=== PATIENT | male | born 1980 | race Caucasian/White ===

== ENCOUNTER 2020-09-06 12:10 | Outpatient (REF) | payer OTHER, SELFPAY | END 2020-09-06 12:11 | disposition home or self-care (01) | LOC: HO.MDS 12:10 | PROVIDERS: PCP Physician Assistant; Visit Provider Internal Medicine Gastroenterology | DX: K50.819 Crohn's disease of both small and large intestine with unspecified complications (principal) | CPT/HCPCS: 96413; 96415 ==

== ENCOUNTER 2020-09-13 12:38 | Day surgery (SDC) | payer OTHER, SELFPAY ==
--- NOTE | 2020-09-12 11:19 | HO.ANESPROP2 ---
Documented by User: Natalie Ballesteros 09/12/20 11:24 HPI - Anesthesia Eval Consult details Narrative: 39yo M for Colonoscopy: Crohn's [facility] Past Medical History Medical History Anemia Anxiety Asthma Crohn disease Depression Surgical History Surgical History H/O colonoscopy H/O esophagogastroduodenoscopy Social History Social History (Updated 09/12/20 @ 11:23 by Natalie Ballesteros) Smoking Status: Never smoker Second Hand Smoke Exposure: Yes Use of substances other than those prescribed or required for medical reasons: No Advance Directives: No Meds Allergies Allergy/AdvReac Type Severity Reaction Status Date / Time prednisone [PREDNISONE] Allergy Intermediate RASH Verified 09/13/20 13:21 lactose AdvReac Intermediate abdominal Uncoded 09/13/20 13:21 pain, diarrhea Exam Exam Date and Time: September 12, 2020 1119 Pertinent Lab Results Pertinent Lab Results: Laboratory Tests 07/16/20 07/16/20 07:18 07:18 WBC 10.9 H Hgb 15.0 Hct 47.9 Plt Count 319 D Sodium 137 Potassium 4.3 Chloride 100 BUN 14 Creatinine 1.02 Assessment and Plan Assessment Anesthesia Assessment: Chart Reviewed Documented by User: Donita Allison 09/13/20 13:28 [facility] Past Medical History Medical History Anemia Anxiety Asthma Crohn disease Depression Family History Family history of problems with anesthesia: No Surgical History Surgical History H/O colonoscopy H/O esophagogastroduodenoscopy History of Problems with Anesthesia: No Social History Social History (Updated 09/12/20 @ 11:23 by Natalie Ballesteros) Smoking Status: Never smoker Second Hand Smoke Exposure: Yes Use of substances other than those prescribed or required for medical reasons: No Advance Directives: No Meds Allergies Allergy/AdvReac Type Severity Reaction Status Date / Time prednisone [PREDNISONE] Allergy Intermediate RASH Verified 09/13/20 13:21 lactose AdvReac Intermediate abdominal Uncoded 09/13/20 13:21 pain, diarrhea Exam Height,Weight and Vital Signs: Height 5 ft 7 in Weight 79.379 kg Vital Signs Temp Pulse Resp BP Pulse Ox 09/13/20 13:23 97.3 F 74 16 111/63 97 Airway Mallampati Class: II TM Dist: >3cm Neck ROM: Full Loose/Missing/Broken Teeth: Yes (Missing) Heart: RRR Lungs: CTAB Assessment and Plan Assessment Anesthesia Assessment: Anesthesia Plan Discussed and Chart Reviewed Final Anesthetic Review NPO: Yes ASA Class: II Final Preanesthetic Review: No Changes in Pt Med Stat, Meds/Allgs Chart Reviewed, Consent Obtained/Reviewed and Anes Risks/Benef Reviewed Patient Risk: Low Procedure Risk: Low Anesthetic Plan Anesthetic Plan: MAC: Disposition: Standard PACU
[2020-09-13 13:23] VITALS: BP 111/63; PULSE 74; RESP 16; TEMP 36.3; O2SAT 97
[2020-09-13] MEDS: Lactated Ringers 1,000 ML 100 ML IVCONT (13:24)
[2020-09-13 13:25] VITALS: BMI 27.3
--- NOTE | 2020-09-13 13:37 | P.HPSUR_ITS ---
Pre-Procedural Eval Section A The patient is an INPATIENT: No The History & Physical has been completed within 30 days and I have reviewed it.: No Section B Chief Complaint: crohns disease Details of Present Illness: Abdominal pain, bloating some bleeding--On Remicade infusions evaluate for level of mucosal activity Relevant Family History (Specify if Yes): No Relevant Social History: None Present Medications: see Short Stay Collaborative assessment Medical History: Significant History (IBD-Crohn's, Low Vitamin D; asthma) History of Previous Operations: Relevant previous surgery/procedure and date(s) (2106--L colo--stopped secondary to vomiting) Allergies: Allergies Allergy/AdvReac Type Severity Reaction Status Date / Time prednisone [PREDNISONE] Allergy Intermediate RASH Verified 09/13/20 13:21 lactose AdvReac Intermediate abdominal Uncoded 09/13/20 13:21 pain, diarrhea Review of Systems Sugical H&P ROS: Negative: Constitution and Cardiovascular and Yes, Specify: Respiratory (Asthma), Psychiatric (anxiety) and Gastrointestinal (IBD) Exam Surgical H&P Exam: Normal: HEENT, Normal: Heart, Normal: Lungs, Normal: Extremities and Normal: Abdomen Plan Diagnosis/Plan: Unchanged Patient has been examined and remains a candidate for the planned procedure YES
--- NOTE | 2020-09-13 14:27 | PM.PROC ---
Brief Operative Note Date of procedure: 09/13/20 Pre-op diagnosis: CROHN'S DISEASE EVALUATE MUCOSAL HEALING ON REMICADE. Post-op diagnosis: same (sUGGESTS IMPROVEMENT. ??PERIANAL INFLAMATION) Procedure: COLONOSCOPY WITH MULTIPLE BX--EPI INJECTION 1.5 CC Anesthesia: MAC (MIGUE HWANG) Surgeon: Kerline Preston Estimated blood loss (mL): 10 Pathology: other (RIGHT COLON, LEFT COLON RECTAL) Condition: stable Disposition: PACU
[2020-09-13 14:33] VITALS: BP 105/59; PULSE 89; RESP 16; TEMP 36.1; O2SAT 96
[2020-09-13] MEDS: Acetaminophen 325 MG TABLET 650 MG PO (14:46)
[2020-09-13 14:48] VITALS: BP 111/73; PULSE 86; RESP 16; TEMP 36.1; O2SAT 97
--- NOTE | 2020-09-14 08:38 | OP_ITS ---
SURGEON: Kerline Preston MD POSTOPERATIVE DIAGNOSIS: Crohn disease appears improved, raise a question of possibility of perianal disease activity. PROCEDURE PERFORMED: Colonoscopy with biopsy, right and left colon; some degree of general friability of mucosa. (oozing @ site was treated with epinephrine submucosal injection 1.5 mL). ESTIMATED BLOOD LOSS: Minimal. COMPLICATIONS: No complications. ANESTHESIA: Monitored. ANESTHESIOLOGIST: Paul Kemp CRNA. ASSISTANTS: No outreach assistant. SPECIMENS: Specimen removed; right colon biopsy, left colon biopsy, rectal biopsy and anorectal verge. PREOPERATIVE DIAGNOSES: Crohn disease, colonoscopy for evaluation mucosal healing on Current therapy.. The patient has a variety of intermittently active symptoms. (He also has an IBS tendency.) WATER FILTRATION TECHNICIAN: Dr. Preston. FINDINGS: Digital rectal exam revealed prostate to be unremarkable. Video colonoscope was introduced without difficulty. It was navigated into the rectosigmoid and sigmoid. Mucosa had slightly edematous and friable appearance. No ulcerations were seen. We passed the descending, transverse, ascending colon into the cecum. A couple of times I could see the area of the TI, which did not appear inflamed, but was eccentrically positioned, so that I could not effectively intubate that area. Biopsies could not be of the terminal ileum could not be done.. Scope was withdrawn. Biopsies were obtained as noted. Retroflexed view showed some exudative change in the perianal region, mostly on the hemorrhoidal surface and the 1 cm that included ARV.. Biopsy was taken just above the area of the anorectal verge. This is the region that had the submucosal injection of epinephrine. PLAN: We will review histological findings, laboratory testing again. At patient's presentation today, he said he was feeling well. We will likely continue with his Remicade infusions as they are. He will be closely followed clinically over the next several months. (He is about to be a father again.) GRAFT OR IMPLANTS: No grafts or implants. CONDITION: Postprocedure, stable. Kerline Preston MD MEN/MODL / [id number] AMBER
== END 2020-09-13 15:37 | disposition home or self-care (01) ==
PROVIDERS: PCP Physician Assistant; Visit Provider Internal Medicine Gastroenterology
PROC: 0DJD8ZZ Inspection of Lower Intestinal Tract, Via Natural or Artificial Opening Endoscopic (ICD-10-PCS; CPT 45378; principal; 2020-09-13 13:10)
DX: K50.90 Crohn's disease, unspecified, without complications (principal); D64.9 Anemia, unspecified; J45.909 Unspecified asthma, uncomplicated; Z79.899 Other long term (current) drug therapy
CPT/HCPCS: 45380; 88305; J0171

== ENCOUNTER → 2020-10-10 09:55 | Outpatient (BNVA) | payer OTHER, SELFPAY | PROVIDERS: PCP Physician Assistant; Referring Provider Physician Assistant; Visit Provider Internal Medicine Gastroenterology | DX: Z76.89 Persons encountering health services in other specified circumstances (principal) ==

== ENCOUNTER 2020-10-17 07:57 | Outpatient (REF) | payer OTHER, SELFPAY | END 2020-10-17 07:58 | disposition home or self-care (01) | LOC: HO.MDS 07:57 | PROVIDERS: PCP Physician Assistant; Visit Provider Internal Medicine Gastroenterology | DX: K50.90 Crohn's disease, unspecified, without complications (principal) | CPT/HCPCS: 96413; 96415; J1745 ==

== ENCOUNTER 2020-11-28 09:42 | Outpatient (REF) | payer OTHER, SELFPAY | END 2020-11-28 09:43 | disposition home or self-care (01) | LOC: HO.MDS 09:42 | PROVIDERS: PCP Physician Assistant; Visit Provider Internal Medicine Gastroenterology | DX: K50.819 Crohn's disease of both small and large intestine with unspecified complications (principal) | CPT/HCPCS: 96413; 96415; J1745 ==

== ENCOUNTER → 2021-01-03 11:43 | Outpatient (BNVA) | payer OTHER, SELFPAY | PROVIDERS: PCP Physician Assistant; Visit Provider Urology ==

== ENCOUNTER 2021-01-08 09:15 | Outpatient (REF) | payer OTHER, SELFPAY | END 2021-01-08 09:16 | disposition home or self-care (01) | LOC: HO.MDS 09:15 | PROVIDERS: PCP Physician Assistant; Visit Provider Internal Medicine Gastroenterology | DX: K50.819 Crohn's disease of both small and large intestine with unspecified complications (principal) | CPT/HCPCS: 96413; 96415; J1745 ==

== ENCOUNTER 2021-01-12 09:34 | Outpatient (REF) | payer OTHER, SELFPAY ==
[2021-01-12 10:10] LABS: MANUAL DIFF FLAG NO
[2021-01-12 10:14] LABS: Basophils Absolute Auto 0.1 X10*3/uL (0.0-0.2); Basophils Percent Auto 0.9 % (0-2); Eosinophils Absolute Auto 0.4 X10*3/uL (0.0-0.4); Eosinophils Percent Auto 4.9 % (0-4); Hematocrit 45.2 % (42-52); Hemoglobin 14.5 g/dl (14.0-18.0); Imm Gran Abs Auto 0.02 X10*3/uL (0.00-0.03); Imm Gran Pct Auto 0.3 % (0.0-0.4); Lymphocytes Percent Auto 26.5 % (20-40); Mean Corpuscular HGB Conc 32.1 g/dl (31.0-36.0); Mean Corpuscular Hemoglobin 27.1 pg (27.0-33.0); Mean Corpuscular Volume 84.5 fL (80-98); Mean Platelet Volume 9.7 fL (9.4-12.4); Monocytes Absolute Auto 0.5 X10*3/uL (0.1-1.2); Monocytes Percent Auto 6.3 % (2-11); Neutrophils Absolute Auto 4.6 X10*3/uL (2.0-8.3); Neutrophils Percent Auto 61.1 % (45-73); Platelet Count 366 X10*3/uL (160-400); Red Blood Count 5.35 X10*6/uL (4.60-5.80); Red Cell Distribution Width 13.6 % (11.0-16.0); White Blood Count 7.5 X10*3/uL (4.8-10.8)
[2021-01-12 10:40] LABS: Alanine Aminotransferase 20 U/L (0-40); Albumin Level 3.4 g/dL (3.5-5.0); Alkaline Phosphatase 47 U/L (39-117); Anion Gap 12 (12-20); Aspartate Amino Transferase 20 U/L (5-37); Bilirubin Total 0.4 mg/dL (0.0-1.0); Blood Urea Nitrogen 17 mg/dL (9-16); C Reactive Protein 0.88 mg/dL (< or = 0.50); Calcium 8.6 mg/dL (8.4-10.2); Carbon Dioxide 30 mmol/L (22-29); Chloride 103 mmol/L (96-108); Estimated Glomerular Filt Rate > 60; Glucose Random 65 mg/dL (60-115); Potassium 4.5 mmol/L (3.3-5.1); Sodium 140 mmol/L (135-145)
[2021-01-12 11:02] LABS: Vitamin D 25-OH Total 23.6 ng/mL (>30)
== END 2021-01-12 09:35 | disposition home or self-care (01) ==
LOC: HO.LAB 09:34
PROVIDERS: PCP Physician Assistant; Visit Provider Internal Medicine Gastroenterology
DX: K50.90 Crohn's disease, unspecified, without complications (principal)
CPT/HCPCS: 36415; 80053; 82306; 85025; 86140

== ENCOUNTER → 2021-02-04 14:15 | Outpatient (BNVA) | payer OTHER, SELFPAY | PROVIDERS: Visit Provider Internal Medicine Gastroenterology ==

== ENCOUNTER 2021-03-19 08:10 | Outpatient (REF) | payer OTHER, SELFPAY | END 2021-03-19 08:11 | disposition home or self-care (01) | LOC: HO.MDS 08:10 | PROVIDERS: PCP Physician Assistant; Visit Provider Internal Medicine Gastroenterology | DX: K50.819 Crohn's disease of both small and large intestine with unspecified complications (principal) | CPT/HCPCS: 36415; 80230; 82397; 82542; 83520; 86141; 96413; 96415; J1745 ==

== ENCOUNTER 2021-04-16 12:21 | Emergency (ER) | payer OTHER, SELFPAY ==
--- NOTE | ~2021-04-16 | CT_ITS ---
EXAMINATION: CT ANGIOGRAM OF THE CHEST WITH AND WITHOUT CONTRAST (CT PULMONARY ANGIOGRAM FOR PE) CLINICAL INFORMATION: Reason for Exam Chest tightness, low O2 sats COMPARISON: Chest x-ray 04/16/2021 TECHNIQUE: Prior to contrast administration, noncontrast localization images were obtained. Subsequently, multidetector volumetric imaging was performed from the thoracic inlet to below the diaphragms following the administration of 65 mL Omnipaque 350 intravenous contrast. No contrast reaction reported Sagittal, coronal, and MIP oblique sagittal reformatted images were obtained on the CT workstation, uploaded to PACS, and reviewed. This CT examination was performed using dose optimization techniques as appropriate, variously including the following: *Automated exposure control *Adjustment of mA and/or kV according to patient size (this includes techniques or standardized protocols for targeted exams where dose is matched to indication/reason for exam; i.e. extremities or head) *Use of iterative reconstruction technique Total exam dose-length product 300 mGy-cm FINDINGS: QUALITY OF STUDY/CONTRAST BOLUS: Satisfactory. PULMONARY ARTERIES: No central or segmental pulmonary emboli. THORACIC AORTA: No aneurysm or dissection. LUNG: No focal consolidation, nodules or masses. PLEURA: No pleural effusion or pneumothorax. MEDIASTINUM: Normal heart size. No pericardial effusion. No hilar or mediastinal lymphadenopathy. No evidence of septal bowing or right heart strain. CHEST WALL/AXILLA: No axillary or internal mammary lymphadenopathy. OSSEOUS STRUCTURES: No acute or suspicious osseous abnormality. UPPER ABDOMEN: Unremarkable. No reflux of contrast into the hepatic veins to suggest elevated right heart pressures. CT/CT angio chest PE protocol IMPRESSION: Normal CT chest. No evidence of pulmonary embolism. VTE: negative
--- NOTE | ~2021-04-16 | XR_ITS ---
EXAMINATION: XR CHEST CLINICAL INFORMATION: Dyspnea. COMPARISON: None TECHNIQUE: 2 views of the chest were obtained. FINDINGS: No significant abnormality is noted involving the heart, lungs, mediastinum, bony thorax or soft tissues. XR/XR chest 2V IMPRESSION: Unremarkable chest exam.
[2021-04-16 12:41] VITALS: BP 136/107; PULSE 75; RESP 18; TEMP 37; O2SAT 93; BMI 27.3
--- NOTE | 2021-04-16 12:58 | ECG_ITS ---
Test Reason : SOB Blood Pressure : / mmHG Vent. Rate : 071 BPM Atrial Rate : 071 BPM P-R Int : 132 ms QRS Dur : 100 ms QT Int : 386 ms P-R-T Axes : 063 065 051 degrees QTc Int : 419 ms Normal sinus rhythm with sinus arrhythmia Normal ECG No significant changes when compared with the previous EKG of april 16, 2021 Referred By: Deedee Carrillo Electronically Signed By:KRUNAL ORTEGA
--- NOTE | 2021-04-16 13:00 | ED.SOB ---
HPI - SOB/Dyspnea General Chief Complaint: Dyspnea Stated Complaint: asthma Time Seen by Provider: 04/16/21 12:51 Source: patient, RN notes reviewed and old records reviewed Mode of arrival: ambulatory Limitations: no limitations History of Present Illness HPI Narrative: 40-year-old male with past medical history of Crohn's, asthma and seasonal allergies is here today for complaining of shortness of breath. Reports that he has been feeling like this for last 3 weeks. Increased cough, and shortness of breath, denies fever or chills. Denies CP, PND or any other symptoms. Denies any exposure to COVID. Related Data Home Medications Medication Instructions Recorded Confirmed infliximab 100 mg intravenous IV 10/10/20 02/04/21 solution albuterol sulfate 90 mcg/actuation INHALATION 10/24/20 02/04/21 aerosol inhaler meclizine 25 mg tablet 25 mg PO DAILY PRN 01/03/21 02/04/21 sodium chloride 0.9 % (flush) ml IV DIRECTED 01/03/21 Previous Rx's Medication Instructions Recorded loratadine 10 mg tablet 10 mg PO DAILY #30 tab 11/13/20 mesalamine 1,000 mg rectal 1,000 mg [place] BEDTIME #30 supp 12/09/20 suppository acetaminophen 300 mg-codeine 30 mg 1 tab PO Q8H #7 tab 01/03/21 tablet cholecalciferol (vitamin D3) 50 2,000 unit PO DAILY 30 Days #30 cap 02/05/21 mcg (2,000 unit) capsule hydrocortisone 1 % topical cream 1 appl TOPICAL BEDTIME 30 Days #28 02/07/21 g albuterol sulfate 2.5 mg INHALATION TID PRN 30 Days 04/10/21 #270 ml albuterol sulfate 2.5 mg INHALATION Q6H PRN #90 ml 04/16/21 albuterol sulfate [ProAir HFA] 2 puff INHALATION Q6H PRN #8.5 g 04/16/21 fluticasone propionate [Aller-Ancelmo] 1 spray INTRANASAL BID #16 g 04/16/21 Allergies Allergy/AdvReac Type Severity Reaction Status Date / Time prednisone [PREDNISONE] Allergy Intermediate RASH Verified 02/04/21 14:16 lactose AdvReac Intermediate abdominal Uncoded 01/03/21 11:45 pain, diarrhea Review of Systems Review of Systems: Constitutional : No Weight loss, No Fever, No Chills, No Night Sweats, No Fatigue, No Malaise ENT/Mouth : No Hearing loss, No Ear Pain, No Nasal Congestion, No Sinus Pain, No Hoarseness, No sore throat, No Rhinorrhea, No Swallowing Difficulty Eyes: No Eye Pain, No Swelling, No Redness, No Foreign Body, No Discharge, No Vision Changes Cardiovascular : No Chest Pain, No SOB, No Dyspnea on Exertion, No Orthopnea, No Edema, No Palpitations Respiratory : No Cough, No Sputum, No Wheezing, No Smoke Exposure, Dyspnea Gastrointestinal : No Nausea, No Vomiting, No Diarrhea, No Constipation, No abdominal Pain, No Hematochezia, No Melena Genitourinary : no irregular bleeding, No Dysuria, No Urinary Frequency, No Hematuria, No Urinary Incontinence, No Urgency, No Flank Pain, No Urinary Flow Changes, No Hesitancy Musculoskeletal : No joint pain, No Myalgias, No Joint Swelling Skin : No Skin Lesions, No rash Neuro : No Weakness, No Numbness, No Paresthesias, No Loss of Consciousness, No Dizziness, No Headache Psych : No Anxiety/Panic, No Depression, No SI/HI/AH/VH, No Social Issues, Heme/Lymph: No Bruising, No Bleeding,No Lymphadenopathy Endocrine : No Polyuria, No Polydipsia, No Temperature Intolerance Yes all other systems are reviewed and are negative [facility] Past Medical History Medical History (Updated 04/16/21 @ 17:23 by JAOSN Gann) Anemia Anxiety Asthma Crohn disease Depression Surgical History H/O colonoscopy H/O esophagogastroduodenoscopy Family History Family History Father Medical history unknown Mother Medical history unknown Social History Social History Household Members: Spouse and Children Alcohol intake: never Smoking Status: Never smoker Second Hand Smoke Exposure: Yes Use of substances other than those prescribed or required for medical reasons: No Advance Directives: Yes Advance Directives Information Provided: Yes Advance Directives on File: No Current occupational status: unemployed Physical Exam Vital Signs: Vital Signs: Last Vital Signs Temp 98.6 F 04/16/21 12:41 Pulse 81 04/16/21 16:03 Resp 18 04/16/21 16:03 BP 115/74 04/16/21 16:03 Pulse Ox 97 04/16/21 16:03 Body Mass Index 27.3 Const: General: cooperative, healthy appearing and comfortable Nutritional Appearance: average body habitus Orientation/consciousness: patient oriented x3 Limitations: no limitations HENMT: Head: Yes normal to inspection Ears: hearing grossly normal bilaterally General nose exam: Normal external nose present Face and sinus: Yes normal facial exam Mouth: Normal oral and palatal mucosa present Throat: Yes posterior oropharynx normal Eyes: General: appearance normal, both eyes and all related structures Eyelids: Yes eyelids normal Conjunctivae: conjunctivae normal Sclerae: sclerae normal Pupils: Equal, round and reactive pupils present Neck: Neck: Yes normal visual inspection, Yes full ROM, Yes no lymphadenopathy, Yes trachea midline and Yes supple Thyroid: Thyroid normal Lymphatic: no lymphadenopathy noted Chest: Chest palpation & inspection: normal inspection of the chest Resp: Effort & Inspection: normal respiratory effort, able to speak in complete sentences and Actively coughing Auscultation: rales Cardio: Jugular venous distension: no JVD Rate: regular rate Rhythm: regular rhythm Heart sounds: S1 normal heart sound present, S2 normal heart sound present, no gallops, no murmurs and no rubs Peripheral pulses: Peripheral pulses 2+ throughout GI: Inspection: Yes normal to inspection and No distended Palpation (GI): No hepatosplenomegaly present and No Rebound tenderness present Percussion: Yes normal to percussion Auscultation: normal bowel sounds Back/Spine/Pelvis: Cervical Spine: cervical ROM normal and No cervical muscular tenderness Thoracic/Lumbar Spine: thoracic and lumbar spine normal to inspection Skin: General skin exam: no rashes or lesions noted, elasticity normal and turgor normal Neuro: General: patient oriented x3 Cranial nerves: Yes Equal, round and reactive pupils present Extrem: General: Yes normal to inspection, Yes full ROM and Yes capillary refill normal Psych: Appearance: grossly normal Mental Status: mental status grossly normal Speech and movement: Normal speech and movement present Affect: normal affect Attitude: cooperative Thought process: Normal thought process present Insight: Good insight present (Psych) Course Course Course Narrative: 40 years old male here today for complaining of shortness of breath and cough for last 3 weeks. Patient has history of asthma and has been using nebulizers as well as inhalers at home. He takes Claritin daily. He reports that the pollen is making his symptoms worse. He has not been taking Flonase or any other medications. Patient reports that the shortness of breath is worse at night. His O2 sat is 95 and his lung sounds with scattered rales. Negative for edema. Will order CBC, BMP, and chest x-ray. Will also order COVID test Reevaluation(s) Reevaluation #1: Chest x-ray negative. CBC negative for leukocytosis or anemia. Eosinophilic count high at 11.2. COVID test negative. Will order updraft. Patient reports now that his chest feels tight. I will order CT of the chest to rule out PE. Reevaluation #2: Patient reports that he is feeling much better after his upstroke treatment. Awaiting for CT of the chest to rule out PE. Patient is O2 saturation improved as well as his lung sounds. Reevaluation #3: CT of the chest negative for PE. Patient reports that he feels much better. I will send him home with script for albuterol updraft solution as well as for rescue inhaler. I will send him home with Flonase as well. Patient has a lot of postnasal drip in particularly during the night when he is laying flat MDM - SOB/Dyspnea Lab Data Attestation: I reviewed the patient's lab results. Result diagrams: 04/16/21 13:52 04/16/21 13:52 Labs: Lab Results 04/16/21 04/16/21 04/16/21 Range/Units 13:52 13:52 13:52 WBC 9.4 (4.8-10.8) X10*3/uL RBC 5.64 (4.60-5.80) X10*6/uL Hgb 15.2 (14.0-18.0) g/dl Hct 46.9 (42-52) % MCV 83.2 (80-98) fL MCH 27.0 (27.0-33.0) pg MCHC 32.4 (31.0-36.0) g/dl RDW 14.7 (11.0-16.0) % Plt Count 324 (160-400) X10*3/uL MPV 10.0 (9.4-12.4) fL Immature Gran % (Auto) 0.2 (0.0-0.4) % Neut % (Auto) 51.8 (45-73) % Lymph % (Auto) 27.9 (20-40) % Catron % (Auto) 7.8 (2-11) % Eos % (Auto) 11.2 H (0-4) % Baso % (Auto) 1.1 (0-2) % Lymph # (Auto) 2.6 (1.2-4.9) X10*3/uL Catron # (Auto) 0.7 (0.1-1.2) X10*3/uL Eos # (Auto) 1.1 H (0.0-0.4) X10*3/uL Baso # (Auto) 0.1 (0.0-0.2) X10*3/uL Abs Immat Gran (auto) 0.02 (0.00-0.03) X10*3/uL Absolute Neuts (auto) 4.9 (2.0-8.3) X10*3/uL Absolute Nucleated RBC 0.000 (0.0-0.012) X10*3/uL Nucleated RBC % (auto) 0.0 (0.0-0.2) /100WBC Hold Blue Top SEE NOTE Sodium 133 L (135-145) mmol/L Potassium 4.0 (3.3-5.1) mmol/L Chloride 101 (96-108) mmol/L Carbon Dioxide 25 (22-29) mmol/L Anion Gap 11 L (12-20) BUN 17 H (9-16) mg/dL Creatinine 0.97 (0.5-1.4) mg/dL Estim Creat Clear Calc 104.2 Estimated GFR > 60 Random Glucose 80 (60-115) mg/dL Calcium 9.0 (8.4-10.2) mg/dL Troponin I High Sens (<3.5-35.0) ng/L COVID-19 (COLIN) (Negative) COVID-19 Clin Com 04/16/21 04/16/21 Range/Units 13:59 15:14 WBC (4.8-10.8) X10*3/uL RBC (4.60-5.80) X10*6/uL Hgb (14.0-18.0) g/dl Hct (42-52) % MCV (80-98) fL MCH (27.0-33.0) pg MCHC (31.0-36.0) g/dl RDW (11.0-16.0) % Plt Count (160-400) X10*3/uL MPV (9.4-12.4) fL Immature Gran % (Auto) (0.0-0.4) % Neut % (Auto) (45-73) % Lymph % (Auto) (20-40) % Catron % (Auto) (2-11) % Eos % (Auto) (0-4) % Baso % (Auto) (0-2) % Lymph # (Auto) (1.2-4.9) X10*3/uL Catron # (Auto) (0.1-1.2) X10*3/uL Eos # (Auto) (0.0-0.4) X10*3/uL Baso # (Auto) (0.0-0.2) X10*3/uL Abs Immat Gran (auto) (0.00-0.03) X10*3/uL Absolute Neuts (auto) (2.0-8.3) X10*3/uL Absolute Nucleated RBC (0.0-0.012) X10*3/uL Nucleated RBC % (auto) (0.0-0.2) /100WBC Hold Blue Top Sodium (135-145) mmol/L Potassium (3.3-5.1) mmol/L Chloride (96-108) mmol/L Carbon Dioxide (22-29) mmol/L Anion Gap (12-20) BUN (9-16) mg/dL Creatinine (0.5-1.4) mg/dL Estim Creat Clear Calc Estimated GFR Random Glucose (60-115) mg/dL Calcium (8.4-10.2) mg/dL Troponin I High Sens < 3.5 (<3.5-35.0) ng/L COVID-19 (COLIN) Negative (Negative) COVID-19 Clin Com See Note Imaging Data Chest x-ray: Radiologist's impression: FINDINGS: No significant abnormality is noted involving the heart, lungs, mediastinum, bony thorax or soft tissues. XR/XR chest 2V IMPRESSION: Unremarkable chest exam. CT scan - chest: Radiologist's impression: FINDINGS: QUALITY OF STUDY/CONTRAST BOLUS: Satisfactory. PULMONARY ARTERIES: No central or segmental pulmonary emboli. THORACIC AORTA: No aneurysm or dissection. LUNG: No focal consolidation, nodules or masses. PLEURA: No pleural effusion or pneumothorax. MEDIASTINUM: Normal heart size. No pericardial effusion. No hilar or mediastinal lymphadenopathy. No evidence of septal bowing or right heart strain. CHEST WALL/AXILLA: No axillary or internal mammary lymphadenopathy. OSSEOUS STRUCTURES: No acute or suspicious osseous abnormality. UPPER ABDOMEN: Unremarkable. No reflux of contrast into the hepatic veins to suggest elevated right heart pressures. CT/CT angio chest PE protocol IMPRESSION: Normal CT chest. No evidence of pulmonary embolism. VTE: negative Discharge Plan Discharge Clinical Impression: Asthma with exacerbation Patient Disposition: Home, Self-Care Instructions: Asthma (ED), Allergies (ED) Additional Instructions: You were seen here today for shortness of breath. Your chest x-ray was normal as well as your CT scan of the chest. Your lab work was negative for any abnormal findings. Please follow-up with you PCP in 2-3 days. You may return to emergency department if your symptoms return or get worse or if you will experience any additional concerning symptoms. Prescriptions: New albuterol sulfate 2.5 mg /3 mL (0.083 %) solution for nebulization 2.5 mg inhalation Q6H PRN (Reason: shortness of breath or wheezing) Qty: 90 RF: 0 albuterol sulfate [ProAir HFA] 90 mcg/actuation HFA aerosol inhaler 2 puff inhalation Q6H PRN (Reason: shortness of breath or wheezing) Qty: 8.5 RF: 0 fluticasone propionate [Aller-Ancelmo] 50 mcg/actuation spray,suspension 1 spray intranasal BID Qty: 16 RF: 0 No Action loratadine 10 mg tablet 10 mg PO DAILY Qty: 30 RF: 4 mesalamine 1,000 mg suppository 1,000 mg [place] BEDTIME Qty: 30 RF: 2 cholecalciferol (vitamin D3) 50 mcg (2,000 unit) capsule 2,000 unit PO DAILY 30 Days Qty: 30 RF: 3 hydrocortisone 1 % cream 1 appl topical BEDTIME 30 Days Qty: 28 RF: 1 albuterol sulfate 2.5 mg /3 mL (0.083 %) solution for nebulization 2.5 mg inhalation TID PRN (Reason: dyspnea) 30 Days Qty: 270 RF: 1 albuterol sulfate 90 mcg/actuation HFA aerosol inhaler inhalation RF: 0 Remicade 100 mg recon soln IV RF: 0 meclizine 25 mg tablet 25 mg PO DAILY PRNRF: 0 sodium chloride 0.9 % (flush) Syringe IV DIRECTED RF: 0 acetaminophen-codeine 300-30 mg tablet 1 tab PO Q8H Qty: 7 RF: 0 Stand Alone Forms: Work/School Release Interventions: ED Discharge Assessment Last Done: 04/16/21 17:33 Discharge Date/Time: 04/16/21 17:33
[2021-04-16 13:56] LABS: MANUAL DIFF FLAG NO
[2021-04-16 14:03] LABS: Basophils Absolute Auto 0.1 X10*3/uL (0.0-0.2); Basophils Percent Auto 1.1 % (0-2); Eosinophils Absolute Auto 1.1 X10*3/uL (0.0-0.4); Eosinophils Percent Auto 11.2 % (0-4); Hematocrit 46.9 % (42-52); Hemoglobin 15.2 g/dl (14.0-18.0); Imm Gran Abs Auto 0.02 X10*3/uL (0.00-0.03); Imm Gran Pct Auto 0.2 % (0.0-0.4); Lymphocytes Absolute Auto 2.6 X10*3/uL (1.2-4.9); Lymphocytes Percent Auto 27.9 % (20-40); Mean Corpuscular HGB Conc 32.4 g/dl (31.0-36.0); Mean Corpuscular Volume 83.2 fL (80-98); Monocytes Absolute Auto 0.7 X10*3/uL (0.1-1.2); Monocytes Percent Auto 7.8 % (2-11); Neutrophils Absolute Auto 4.9 X10*3/uL (2.0-8.3); Neutrophils Percent Auto 51.8 % (45-73); Platelet Count 324 X10*3/uL (160-400); Red Blood Count 5.64 X10*6/uL (4.60-5.80); Red Cell Distribution Width 14.7 % (11.0-16.0); White Blood Count 9.4 X10*3/uL (4.8-10.8)
[2021-04-16 14:22] LABS: COVID-19 Test Negative (Negative)
[2021-04-16 14:32] LABS: Anion Gap 11 (12-20); Blood Urea Nitrogen 17 mg/dL (9-16); Carbon Dioxide 25 mmol/L (22-29); Chloride 101 mmol/L (96-108); Creatinine Clr Calc Pharmacy 104.2; Estimated Glomerular Filt Rate > 60; Glucose Random 80 mg/dL (60-115); Sodium 133 mmol/L (135-145)
--- NOTE | 2021-04-16 14:54 | PC.NURSE ---
pt reports feeling sob. 92% on room air. placed on 2l nc for comfort and pt sat increased to 94-95%
[2021-04-16] MEDS: Albuterol Sulfate (0.083%) 2.5 MG/3 ML VIAL.NEB 5 MG INHALE (15:22)
[2021-04-16 15:23] VITALS: PULSE 74; O2SAT 96
[2021-04-16 15:50] LABS: Troponin-I High Sensitivity < 3.5 ng/L (<3.5-35.0)
[2021-04-16 16:03] VITALS: BP 115/74; PULSE 81; RESP 18; O2SAT 97
[2021-04-16] MEDS: iohexoL 350 MG/ML 100 ML INFUS..BTL IV (16:47)
== END 2021-04-16 17:33 | disposition home or self-care (01) ==
PROVIDERS: Nurse Practitioner Family; Emergency Provider Emergency Medicine; PCP Physician Assistant
DX: J45.901 Unspecified asthma with (acute) exacerbation (principal); Z20.822 Contact with and (suspected) exposure to COVID-19; K50.90 Crohn's disease, unspecified, without complications
CPT/HCPCS: 36415; 71046; 71275; 80048; 84484; 85025; 87635; 93005; 94640; 99285; Q9967

== ENCOUNTER 2021-04-23 02:59 | Emergency (ER) | payer OTHER, SELFPAY ==
--- NOTE | ~2021-04-23 | XR_ITS ---
EXAMINATION: XR CHEST CLINICAL INFORMATION: Cough COMPARISON: 04/16/2021 TECHNIQUE: Frontal view of the chest was obtained. FINDINGS: The lungs are clear with no focal consolidation. No evidence of pneumothorax, pulmonary edema, or pleural effusions. The cardiomediastinal silhouette is unremarkable. No acute osseous findings. XR/XR chest 1V IMPRESSION: No acute cardiopulmonary findings.
[2021-04-23 03:11] VITALS: BP 121/82; PULSE 75; RESP 16; TEMP 36.9; O2SAT 99; BMI 20.7
[2021-04-23 03:43] VITALS: PULSE 85; RESP 18; O2SAT 97
--- NOTE | 2021-04-23 04:34 | PC.NURSE ---
MD IN ROOM FOR EVAL. PT AWAITING FOR CXR.
--- NOTE | 2021-04-23 04:42 | ED_ITS ---
HPI - URI/Sore Throat General Chief Complaint: Upper Respiratory Symptoms Stated Complaint: Asthma Time Seen by Provider: 04/23/21 04:11 Source: patient and american sign language interpreter Mode of arrival: ambulatory Limitations: no limitations History of Present Illness HPI Narrative: 40-year-old male history of asthma came in complaining of asthma exacerbation during the nighttime for the past 4 weeks, patient was seen 6 days ago in the ED for similar presentation, patient complaining of cough with phlegm. Patient stated that more at nighttime he wake up with difficulty breathing and he has to use his asthma medication. Patient used his asthma albuterol inhaler before coming here and now he feels better, declined any flu-like symptoms. No fever, no chills. Related Data Home Medications Medication Instructions Recorded Confirmed infliximab 100 mg intravenous IV 10/10/20 04/17/21 solution meclizine 25 mg tablet 25 mg PO DAILY PRN 01/03/21 04/17/21 Previous Rx's Medication Instructions Recorded loratadine 10 mg tablet 10 mg PO DAILY #30 tab 11/13/20 mesalamine 1,000 mg rectal 1,000 mg [place] BEDTIME #30 supp 12/09/20 suppository acetaminophen 300 mg-codeine 30 mg 1 tab PO Q8H #7 tab 01/03/21 tablet cholecalciferol (vitamin D3) 50 2,000 unit PO DAILY 30 Days #30 cap 02/05/21 mcg (2,000 unit) capsule hydrocortisone 1 % topical cream 1 appl TOPICAL BEDTIME 30 Days #28 02/07/21 g albuterol sulfate 2.5 mg INHALATION Q6H PRN #90 ml 04/16/21 albuterol sulfate [ProAir HFA] 2 puff INHALATION Q6H PRN #8.5 g 04/16/21 fluticasone propionate [Aller-Ancelmo] 1 spray INTRANASAL BID #16 g 04/16/21 Allergies Allergy/AdvReac Type Severity Reaction Status Date / Time prednisone [PREDNISONE] Allergy Intermediate RASH Verified 04/17/21 08:57 lactose AdvReac Intermediate abdominal Uncoded 04/17/21 08:57 pain, diarrhea Review of Systems Review of Systems: All other systems are reviewed and are negative Constitutional: Reports as per HPI and Reports no additional constitutional complaints Eyes: Reports as per HPI and Reports no additional eye complaints Reports system reviewed and no additional complaints, except as documented Cardiovascular: Reports as per HPI and Reports no additional cardiovascular complaints Respiratory: Reports as per HPI and Reports no additional respiratory complaints Gastrointestinal: Reports as per HPI and Reports no additional gastrointestinal complaints Genitourinary: Reports no additional female genitourinary complaints Musculoskeletal: Reports no additional musculoskeletal complaints Skin/Breast: Reports system reviewed and no additional complaints, except as docu Psychiatric: Reports no additional psychiatric complaints Endocrine: Reports no additional endocrine complaints Hematologic/Lymphatic: Reports no additional hematologic/lymphatic complaints Allergic/Immunologic: Reports no additional allergic/immunologic complaints Reports system reviewed and no additional complaints, except as documented and Reports Abnormal speech present [facility] Past Medical History Medical History Anemia Anxiety Asthma Crohn disease Depression Surgical History H/O colonoscopy H/O esophagogastroduodenoscopy Family History Family History Father Medical history unknown Mother Medical history unknown Social History Social History Household Members: Spouse and Children Alcohol intake: never Patient Tobacco Use Status: Never used Tobacco Second Hand Smoke Exposure: Yes Advance Directives: No Advance Directives Information Provided: No Current occupational status: unemployed Physical Exam Vital Signs: Vital Signs: Last Vital Signs Temp 98.4 F 04/23/21 03:11 Pulse 85 04/23/21 03:43 Resp 18 04/23/21 03:43 BP 121/82 04/23/21 03:11 Pulse Ox 97 04/23/21 03:43 Body Mass Index 20.7 Vital signs have been reviewed as appeared to be correct. Blood pressure normal. Heart rate normal. Respiration rate normal. Temperature normal. Oxygen saturation normal. Appearance: Alert. Oriented X3. No acute distress. Head: Normal external exam. Normocephalic. Atraumatic. No Santana signs noted. No raccoon eyes noted Eyes: PERRLA. EOMI. Conjunctiva and sclera normal. Eyelids normal. ENT: TM's Normal. Pharynx normal. Uvula midline. Moist mucous membranes. No trismus noted. No drooling noted. No muffled voice noted. Neck: Normal inspection. Neck supple. FROM. No adenopathy. Thyroid Normal. No meningeal signs. No neck mass noted. CVS: Normal heart rate and rhythm. Heart sound normal. No murmurs noted. Pulses normal throughout. Respiratory: No respiratory distress. Painless inspiration. Breath sounds normal. No wheezes/rales noted. Chest nontender. No accessory muscle usage noted or decreased air movement noted. Abdomen: Soft and nontender. Bowel sounds normal in all 4 quadrants. No distention noted. No organomegaly noted. No visible injury noted. Back: No CVA tenderness. Full range of motion noted. Skin: Skin warm and dry. Normal skin color. Normal skin turgor. No kendal hes/lesions/lacerations noted. Extremities: No lower extremity edema. Extremities exhibit normal range of motion. Extremities nontender. Neuro: Oriented X 3. No motor deficit. No sensory deficit. Reflexes normal. Course Course Course Narrative: 40 years old male with history of asthma came in with worsening of asthma exacerbation mostly at nighttime that wake him up from sleep to use his asthma medicine, patient uses asthma medication before coming to the hospital now he feels better, patient also is complaining of productive cough with clear sputum chest x-ray is unremarkable, chest exam is unremarkable. As I discussed with the patient patient will need to follow up with esol teacher as an outpatient will provide Dr. Scott information. MDM - URI/Sore Throat Imaging Data Chest x-ray: Radiologist's impression: No acute pathology. Discharge Plan Discharge Clinical Impression: Asthma, Bronchitis Patient Disposition: Home, Self-Care Instructions: Bronchospasm (ED) Prescriptions: No Action loratadine 10 mg tablet 10 mg PO DAILY Qty: 30 RF: 4 mesalamine 1,000 mg suppository 1,000 mg [place] BEDTIME Qty: 30 RF: 2 cholecalciferol (vitamin D3) 50 mcg (2,000 unit) capsule 2,000 unit PO DAILY 30 Days Qty: 30 RF: 3 hydrocortisone 1 % cream 1 appl topical BEDTIME 30 Days Qty: 28 RF: 1 albuterol sulfate 2.5 mg /3 mL (0.083 %) solution for nebulization 2.5 mg inhalation Q6H PRN (Reason: shortness of breath or wheezing) Qty: 90 RF: 0 albuterol sulfate [ProAir HFA] 90 mcg/actuation HFA aerosol inhaler 2 puff inhalation Q6H PRN (Reason: shortness of breath or wheezing) Qty: 8.5 RF: 0 fluticasone propionate [Aller-Ancelmo] 50 mcg/actuation spray,suspension 1 spray intranasal BID Qty: 16 RF: 0 Remicade 100 mg recon soln IV RF: 0 meclizine 25 mg tablet 25 mg PO DAILY PRNRF: 0 acetaminophen-codeine 300-30 mg tablet 1 tab PO Q8H Qty: 7 RF: 0 Referrals: Bravo Scott MD [Physician] - 2 days
== END 2021-04-23 04:58 | disposition home or self-care (01) ==
PROVIDERS: Emergency Provider Emergency Medicine; PCP Physician Assistant
DX: J40 Bronchitis, not specified as acute or chronic (principal); R05 Cough
CPT/HCPCS: 71045; 99283

== ENCOUNTER 2021-04-24 08:58 | Outpatient (REF) | payer OTHER, SELFPAY ==
--- NOTE | ~2021-04-24 | MR_ITS ---
EXAMINATION: MR ABDOMEN AND PELVIS WITHOUT AND WITH CONTRAST CLINICAL INFORMATION: Crohn's disease, follow-up. COMPARISON: MRI of the abdomen and pelvis dated 01/04/2020. TECHNIQUE: MRI of the abdomen and pelvis before and after the IV administration of 8 mL of Gadavist was obtained using routine sequences. FINDINGS: Inferior chest: Unremarkable. Liver: Unremarkable. Biliary: Unremarkable. Pancreas: Unremarkable. Spleen: Unremarkable. Adrenal glands: Unremarkable. Kidneys/proximal ureters: Unremarkable. Urinary bladder: Bowel: There has been interval development of several dilated loops of proximal small bowel predominantly in the left mid to upper left abdomen. A sales training representative loop measures 4.3 cm in transverse dimension (image 34, series 10). Several short segments of mural thickening are seen with associated transition point. A sales training representative transition point in the left mid to lower abdomen measures approximately 1.6 cm in length (image 18, series 4; image 6, series 11). A second segment of the left of midline in the midabdomen measures 3.1 cm (image 25, series 4; image 25, series 10). An additional segment to the right of midline in the lower abdomen measures approximately 3.8 cm in length (image 4, series 11; image 25, series 4). Normal caliber small bowel is seen between the segments. The terminal ileum is unremarkable. The colon is unremarkable. Pelvic viscera: Unremarkable. Vascular: Unremarkable. Lymph Nodes: No lymphadenopathy. Musculoskeletal: L5-S1 severe degenerative disc disease and grade 1 anterolisthesis with mild interval worsening in disc space narrowing. No other significant abnormality. Soft tissues: Unremarkable. MR/MR pelvis wo/w con IMPRESSION: 1. Interval development of dilated loops of proximal small bowel predominantly in the left mid and upper abdomen with several short segment areas of mural thickening. A definitive transition point is seen in the left lower abdomen as detailed above. These findings appear partially obstructing, but given the long interval between studies, chronicity of the dilated small bowel loops cannot be determined. A CT scan of the abdomen and pelvis with oral contrast and/or a small bowel series may be of value to better assess for level of obstruction. 3. L5-S1 severe degenerative disc disease and grade 1 anterolisthesis with mild interval worsening.
--- NOTE | ~2021-04-24 | MR_ITS ---
EXAMINATION: MR ABDOMEN AND PELVIS WITHOUT AND WITH CONTRAST CLINICAL INFORMATION: Crohn's disease, follow-up. COMPARISON: MRI of the abdomen and pelvis dated 01/04/2020. TECHNIQUE: MRI of the abdomen and pelvis before and after the IV administration of 8 mL of Gadavist was obtained using routine sequences. FINDINGS: Inferior chest: Unremarkable. Liver: Unremarkable. Biliary: Unremarkable. Pancreas: Unremarkable. Spleen: Unremarkable. Adrenal glands: Unremarkable. Kidneys/proximal ureters: Unremarkable. Urinary bladder: Bowel: There has been interval development of several dilated loops of proximal small bowel predominantly in the left mid to upper left abdomen. A claims customer service representative loop measures 4.3 cm in transverse dimension (image 34, series 10). Several short segments of mural thickening are seen with associated transition point. A claims customer service representative transition point in the left mid to lower abdomen measures approximately 1.6 cm in length (image 18, series 4; image 6, series 11). A second segment of the left of midline in the midabdomen measures 3.1 cm (image 25, series 4; image 25, series 10). An additional segment to the right of midline in the lower abdomen measures approximately 3.8 cm in length (image 4, series 11; image 25, series 4). Normal caliber small bowel is seen between the segments. The terminal ileum is unremarkable. The colon is unremarkable. Pelvic viscera: Unremarkable. Vascular: Unremarkable. Lymph Nodes: No lymphadenopathy. Musculoskeletal: L5-S1 severe degenerative disc disease and grade 1 anterolisthesis with mild interval worsening in disc space narrowing. No other significant abnormality. Soft tissues: Unremarkable. MR/MR abdomen wo/w con IMPRESSION: 1. Interval development of dilated loops of proximal small bowel predominantly in the left mid and upper abdomen with several short segment areas of mural thickening. A definitive transition point is seen in the left lower abdomen as detailed above. These findings appear partially obstructing, but given the long interval between studies, chronicity of the dilated small bowel loops cannot be determined. A CT scan of the abdomen and pelvis with oral contrast and/or a small bowel series may be of value to better assess for level of obstruction. 3. L5-S1 severe degenerative disc disease and grade 1 anterolisthesis with mild interval worsening.
== END 2021-04-24 08:59 | disposition home or self-care (01) ==
LOC: HO.MRI 08:58
PROVIDERS: Visit Provider Internal Medicine Gastroenterology
DX: K50.90 Crohn's disease, unspecified, without complications (principal)
CPT/HCPCS: 72197; 74183; A9585

== ENCOUNTER 2021-04-30 08:20 | Outpatient (REF) | payer OTHER, SELFPAY ==
[2021-05-03 22:46] LABS: TS Negative Control Passed; TS Panel A 3; TS Panel B 0; TS Positive Control Passed; TSpotTB Negative (SeeBelow)
== END 2021-04-30 08:21 | disposition home or self-care (01) ==
LOC: HO.MDS 08:20
PROVIDERS: PCP Physician Assistant; Visit Provider Internal Medicine Gastroenterology
DX: K50.819 Crohn's disease of both small and large intestine with unspecified complications (principal)
CPT/HCPCS: 36415; 86481; 96413; 96415; J1745

== ENCOUNTER → 2021-05-07 11:34 | Outpatient (BNVA) | payer OTHER, SELFPAY | PROVIDERS: PCP Physician Assistant; Visit Provider Internal Medicine Gastroenterology ==

== ENCOUNTER → 2021-05-14 15:18 | Outpatient (BNVA) | payer OTHER, SELFPAY | PROVIDERS: PCP Physician Assistant; Visit Provider Internal Medicine Gastroenterology ==

== ENCOUNTER 2021-05-28 14:29 | Outpatient (REF) | payer OTHER, SELFPAY ==
[2021-05-28 15:38] LABS: MANUAL DIFF FLAG NO
[2021-05-28 15:44] LABS: Basophils Absolute Auto 0.1 X10*3/uL (0.0-0.2); Basophils Percent Auto 0.6 % (0-2); Eosinophils Absolute Auto 0.4 X10*3/uL (0.0-0.4); Eosinophils Percent Auto 4.6 % (0-4); Hematocrit 46.5 % (42-52); Hemoglobin 15.2 g/dl (14.0-18.0); Imm Gran Abs Auto 0.01 X10*3/uL (0.00-0.03); Imm Gran Pct Auto 0.1 % (0.0-0.4); Lymphocytes Absolute Auto 2.4 X10*3/uL (1.2-4.9); Lymphocytes Percent Auto 27.2 % (20-40); Mean Corpuscular HGB Conc 32.7 g/dl (31.0-36.0); Mean Corpuscular Hemoglobin 26.9 pg (27.0-33.0); Mean Corpuscular Volume 82.3 fL (80-98); Mean Platelet Volume 10.1 fL (9.4-12.4); Monocytes Absolute Auto 0.6 X10*3/uL (0.1-1.2); Monocytes Percent Auto 6.5 % (2-11); Neutrophils Absolute Auto 5.5 X10*3/uL (2.0-8.3); Platelet Count 310 X10*3/uL (160-400); Red Blood Count 5.65 X10*6/uL (4.60-5.80); Red Cell Distribution Width 15.9 % (11.0-16.0)
[2021-05-28 17:00] LABS: Erythrocyte Sedimentation Rate 5 MM/HR (0-15)
[2021-05-31 13:36] LABS: IgA 384 mg/dL (47-310); IgG 1876 mg/dL (600-1640); IgM 68 mg/dL (50-300)
== END 2021-05-28 14:30 | disposition home or self-care (01) ==
LOC: HO.LAB 14:29
PROVIDERS: PCP Physician Assistant; Visit Provider Hospitalist
DX: J45.40 Moderate persistent asthma, uncomplicated (principal); D72.10 Eosinophilia, unspecified; K50.90 Crohn's disease, unspecified, without complications; F41.8 Other specified anxiety disorders; Z88.8 Allergy status to other drugs, medicaments and biological substances; Z91.011 Allergy to milk products; Z79.899 Other long term (current) drug therapy
CPT/HCPCS: 36415; 82784; 82785; 85025; 85652; 86003; 99202

== ENCOUNTER 2021-06-11 09:21 | Outpatient (REF) | payer OTHER, SELFPAY | END 2021-06-11 09:22 | disposition home or self-care (01) | LOC: HO.MDS 09:21 | PROVIDERS: PCP Physician Assistant; Visit Provider Internal Medicine Gastroenterology | DX: K50.819 Crohn's disease of both small and large intestine with unspecified complications (principal) | CPT/HCPCS: 36415; 80230; 82542; 96413; 96415; J1745 ==

== ENCOUNTER 2021-07-23 08:43 | Outpatient (REF) | payer OTHER, SELFPAY | END 2021-07-23 08:44 | disposition home or self-care (01) | LOC: HO.MDS 08:43 | PROVIDERS: PCP Physician Assistant; Visit Provider Internal Medicine Gastroenterology | DX: K50.819 Crohn's disease of both small and large intestine with unspecified complications (principal) | CPT/HCPCS: 96413; 96415; J1745 ==

== ENCOUNTER → 2021-08-19 09:03 | Outpatient (BNVA) | payer OTHER, SELFPAY | PROVIDERS: PCP Internal Medicine; Visit Provider Internal Medicine Gastroenterology ==

== ENCOUNTER 2021-09-03 08:31 | Outpatient (REF) | payer OTHER, SELFPAY | END 2021-09-03 08:32 | disposition home or self-care (01) | LOC: HO.MDS 08:31 | PROVIDERS: PCP Physician Assistant; Visit Provider Internal Medicine Gastroenterology | DX: K50.819 Crohn's disease of both small and large intestine with unspecified complications (principal) | CPT/HCPCS: 96413; 96415; J1745 ==

== ENCOUNTER 2021-09-11 11:22 | Outpatient (REF) | payer OTHER, SELFPAY ==
--- NOTE | ~2021-09-11 | CT_ITS ---
EXAMINATION: CT ABDOMEN AND PELVIS WITH CONTRAST CLINICAL INFORMATION: Periumbilical pain. History of Crohn's disease. COMPARISON: Previous CT scan most recent September 2018 and MRI of the abdomen and pelvis TECHNIQUE: Multidetector volumetric images were obtained from the superior aspect of the liver through the pubic symphysis following administration 85 mL of Omnipaque 350 intravenous contrast. Sagittal and coronal reformatted images were obtained on the technologist's workstation. Oral contrast: Yes This CT examination was performed using dose optimization techniques as appropriate, variously including the following: *Automated exposure control *Adjustment of mA and/or kV according to patient size (this includes techniques or standardized protocols for targeted exams where dose is matched to indication/reason for exam; i.e. extremities or head) *Use of iterative reconstruction technique DLP: 4-5 mGy-cm FINDINGS: LUNG BASES: The visualized lung bases are unremarkable. LIVER, GALLBLADDER, AND BILIARY TREE: The liver is normal in size, shape, and attenuation. No focal hepatic lesion or biliary ductal dilatation is present. The gallbladder is unremarkable with no evidence of radiopaque gallstones, gallbladder wall thickening, or obvious pericholecystic inflammatory changes. PANCREAS: Unremarkable. SPLEEN: Unremarkable. ADRENAL GLANDS: Unremarkable. KIDNEYS AND URETERS: The kidneys are normal in size, shape, and attenuation. No hydronephrosis, hydroureter, or calculi seen. No perinephric stranding. BLADDER: Unremarkable. GASTROINTESTINAL TRACT: There are several areas of small bowel wall thickening suggestive of active Crohn's disease. There are areas in the mid abdomen and upper pelvis that demonstrate small bowel dilatation, wall thickening and angular course of the small bowel. There 2 areas in the more distal ileum in the lateral right side of the abdomen that demonstrates mild dilatation, marked wall thickening and angulation. There is no evidence for complete obstruction with contrast reaching the colon. There are intervening high area areas of normal-appearing small bowel. There may be mild diffuse narrowing of the terminal ileum. No evidence of abscess, perforation or a fistula is seen. The large bowel is unremarkable. There is question of focal left lateral wall thickening and increased enhancement along the left side of the lower rectum questionable for proctitis/involvement from inflammatory bowel disease as well for example axial image 83 series 3 and coronal T2 image 15. The appendix is normal. ABDOMINAL WALL: There is diastasis of the rectus muscles and small abdominal wall hernia containing fat. LYMPH NODES: There are small small bowel mesentery lymph nodes. No enlarged lymph nodes are seen. VASCULAR: Unremarkable. PELVIC VISCERA: Unremarkable. OSSEOUS STRUCTURES: There is spondylolysis, spondylolisthesis and degenerative disc disease at L5-S1. CT/CT abdomen pelvis w con IMPRESSION: Areas of active inflammatory bowel disease involving the distal small bowel in the lower mid abdomen and right lateral abdomen. This is slightly increased from previous MR enterography exam April 2021. There is also questionable involvement of the left side of the lower rectum.
[2021-09-11] MEDS: Barium Sulfate Oral (Berry) 450 ML ORAL.SUSP 900 ML PO (14:34)
[2021-09-11] MEDS: iohexoL 350 MG/ML 100 ML INFUS..BTL IV (14:34)
== END 2021-09-11 11:23 | disposition home or self-care (01) ==
LOC: HO.CT 11:22
PROVIDERS: PCP Physician Assistant; Visit Provider Internal Medicine Gastroenterology
DX: R10.33 Periumbilical pain (principal)
CPT/HCPCS: 74177; Q9967

== ENCOUNTER 2021-10-28 09:18 | Outpatient (REF) | payer OTHER, SELFPAY | END 2021-10-28 09:19 | disposition home or self-care (01) | LOC: HO.MDS 09:18 | PROVIDERS: Visit Provider Internal Medicine Gastroenterology | DX: K50.90 Crohn's disease, unspecified, without complications (principal) | CPT/HCPCS: 96413; 96415; J1745 ==

== ENCOUNTER 2021-11-01 23:24 | Emergency (ER) | payer OTHER, SELFPAY ==
--- NOTE | 2021-11-01 | ECG_ITS ---
Test Reason : CHEST PAIN Blood Pressure : / mmHG Vent. Rate : 060 BPM Atrial Rate : 060 BPM P-R Int : 144 ms QRS Dur : 104 ms QT Int : 406 ms P-R-T Axes : 056 066 041 degrees QTc Int : 406 ms Normal sinus rhythm Normal ECG When compared with ECG of 16-APR-2021 13:04, No significant change was found Referred By: Generic ED Physician Electronically Signed By:Rakesh Ghotra
--- NOTE | ~2021-11-01 | XR_ITS ---
EXAMINATION: XR CHEST CLINICAL INFORMATION: Chest pain COMPARISON: 04/23/2021 TECHNIQUE: Frontal view of the chest was obtained. FINDINGS: No significant abnormality is noted involving the heart, lungs, mediastinum, bony thorax or soft tissues. XR/XR chest 1V IMPRESSION: Unremarkable examination.
[2021-11-01 23:44] VITALS: BP 105/57; PULSE 65; RESP 22; TEMP 37.1; O2SAT 96; BMI 26.6
[2021-11-02 00:19] LABS: MANUAL DIFF FLAG NO
[2021-11-02 00:20] LABS: Basophils Absolute Auto 0.1 X10*3/uL (0.0-0.2); Basophils Percent Auto 0.5 % (0-2); Eosinophils Absolute Auto 0.4 X10*3/uL (0.0-0.4); Eosinophils Percent Auto 3.9 % (0-4); Hematocrit 45.8 % (42.0-52.0); Imm Gran Abs Auto 0.03 X10*3/uL (0.00-0.03); Imm Gran Pct Auto 0.3 % (0.0-0.4); Lymphocytes Absolute Auto 2.8 X10*3/uL (1.2-4.9); Lymphocytes Percent Auto 27.3 % (20-40); Mean Corpuscular HGB Conc 32.8 g/dl (31.0-36.0); Mean Corpuscular Hemoglobin 27.8 pg (27.0-33.0); Mean Corpuscular Volume 84.8 fL (80.0-98.0); Mean Platelet Volume 9.9 fL (9.4-12.4); Monocytes Absolute Auto 0.7 X10*3/uL (0.1-1.2); Monocytes Percent Auto 6.9 % (2-11); Neutrophils Absolute Auto 6.2 x10*3/uL (2.0-8.3); Neutrophils Percent Auto 61.1 % (45-73); Platelet Count 297 X10*3/uL (160-400); Red Cell Distribution Width 15.9 % (11.0-16.0); White Blood Count 10.2 X10*3/uL (4.8-10.8)
[2021-11-02 00:39] LABS: Troponin-I High Sensitivity < 3.5 ng/L (<3.5-35.0)
--- NOTE | 2021-11-02 01:18 | ED_ITS ---
HPI - Chest Pain General Chief Complaint: Chest Pain Stated Complaint: chest pain Time Seen by Provider: 11/02/21 01:15 Source: patient Mode of arrival: ambulatory Limitations: no limitations History of Present Illness HPI narrative: 41-year-old male who presents emergency department for evaluation of chest pain x2 days. He states the pain came on gradually 2 days prior and has gotten progressively worse. He states the pain is intermittent and located on the left side of his chest. The pain is pressure /stabbing sensation which is worse with breathing. He states the pain is moderate to severe in intensity. He does feel short of breath and has dyspnea on exertion. He denied any swelling of his lower extremities. He did not take any medications for the pain. Patient states that he has had a rash in his hands for months. He also has a rash on his hands feet and his mouth as well. 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 Related Data Home Medications Medication Instructions Recorded Confirmed meclizine 25 mg tablet 25 mg PO DAILY PRN 01/03/21 08/20/21 Previous Rx's Medication Instructions Recorded mesalamine 1,000 mg rectal 1,000 mg CO BEDTIME #30 supp 12/09/20 suppository acetaminophen 300 mg-codeine 30 mg 1 tab PO Q8H #7 tab 01/03/21 tablet hydrocortisone 1 % topical cream 1 appl TOPICAL BEDTIME 30 Days #28 02/07/21 g fluticasone propionate 50 1 spray INTRANASAL BID #16 g 04/16/21 mcg/actuation nasal spray,suspension (Aller-Ancelmo) budesonide-formoterol HFA 160 2 puff INHALATION BID 30 Days 05/29/21 mcg-4.5 mcg/actuation aerosol #10.2 g inhaler (Symbicort) montelukast 10 mg tablet 10 mg PO BEDTIME 30 Days #30 tab 05/29/21 (Singulair) albuterol sulfate 2.5 mg (3 mL) INHALATION Q6H PRN 06/01/21 #90 ml loratadine 10 mg tablet 10 mg PO DAILY #30 tab 07/21/21 albuterol sulfate 90 mcg/actuation 2 puff INHALATION Q6H PRN #8.5 g 07/30/21 aerosol inhaler (ProAir HFA) cholecalciferol (vitamin D3) 50 2,000 unit PO DAILY 30 Days #30 cap 08/26/21 mcg (2,000 unit) capsule infliximab 100 mg intravenous 800 mg IV Q4W 28 Days #8 ea 10/02/21 solution (Remicade) triamcinolone acetonide 0.1 % 1 appl TOPICAL BID 14 Days #454 g 10/21/21 topical cream ketorolac 10 mg tablet 10 mg PO Q6H PRN 5 Days #15 tab 11/02/21 Allergies Allergy/AdvReac Type Severity Reaction Status Date / Time prednisone [PREDNISONE] Allergy Intermediate RASH Verified 10/21/21 13:32 lactose AdvReac Intermediate abdominal Uncoded 08/20/21 08:28 pain, diarrhea Review of Systems Review of Systems: Yes all other systems are reviewed and are negative FOR[facility]LY [facility] Past Medical History Medical History Anemia Anxiety Asthma Crohn disease Depression Eosinophilia Surgical History H/O colonoscopy H/O esophagogastroduodenoscopy Family History Family History Father Medical history unknown Mother Medical history unknown Social History Social History Household Members: Spouse and Children Housing: Apartment Alcohol intake: never Patient Tobacco Use Status: Never used Tobacco e-Cigarette/Vaping Use: Never Used Second Hand Smoke Exposure: Yes Advance Directives: No Advance Directives Information Provided: Yes service: No Current occupational status: unemployed Physical Exam Vital Signs: Vital Signs: Last Vital Signs Temp 98.7 F 11/01/21 23:44 Pulse 65 11/01/21 23:44 Resp 22 H 11/01/21 23:44 BP 105/57 L 11/01/21 23:44 Pulse Ox 96 11/01/21 23:44 BMI result Body Mass Index 26.6 Const: General: cooperative and no acute distress Orientation/consciousness: oriented to person and oriented to place Limitations: no limitations HENMT: Head: Yes normal to inspection, Yes normocephalic and Yes atraumatic Ears: external ears normal General nose exam: Normal external nose present Face and sinus: Yes normal facial exam Mouth: other ( Punctate rash on the left posterior palate) Throat: Yes posterior oropharynx normal Eyes: General: appearance normal, both eyes and all related structures Pupils: Equal, round and reactive pupils present Neck: Neck: Yes normal visual inspection, Yes no lymphadenopathy, Yes trachea midline and Yes supple Chest: Chest palpation & inspection: normal inspection of the chest and tenderness ( Left chest wall pain) Resp: Effort & Inspection: normal respiratory effort and able to speak in complete sentences Auscultation: clear to auscultation bilaterally Cardio: Rate: regular rate Rhythm: regular rhythm Heart sounds: S1 normal heart sound present, S2 normal heart sound present and no murmurs GI: Inspection: Yes normal to inspection Palpation (GI): Soft to palpation, nontender and no guarding Auscultation: normal bowel sounds : General: Yes no CVA tenderness Back/Spine/Pelvis: Back: no CVA tenderness Skin: Other: patient has a punctate rash, this left soft palate, he also has a red,punctate rash on his hands feet, groin area. General skin exam: no rashes or lesions noted Neuro: General: oriented to person and oriented to place Cranial nerves: Yes CN's II-XII intact bilaterally and Yes Equal, round and reactive pupils present Cognition (Neuro): normal cognition Motor exam (neuro): 5/5 motor strength present throughout Extrem: General: Yes normal to inspection Psych: Appearance: grossly normal Speech and movement: Normal speech and movement present Affect: normal affect Attitude: cooperative Thought process: Normal thought process present Thought content: Normal thought content present Course Course Course Narrative: 41-year-old male who presents emergency department for evaluation of left-sided chest pain times 2 days, associated with shortness of breath and dyspnea on exertion. Vital signs revealed a normal pulse of 65 with An elevated respiratory rate of 22. physical examination did reveal left- sided chest wall tenderness. The patient also has a rash on his left posterior soft palate and a rash on his hands feet groin area. This rash looks like a hand foot and mouth type presentation however the patient states the rash has been there for 2 months. Patient did have left-sided chest wall tenderness. Differential includes but not limited to pneumonia, pulmonary embolism, coronary disease, costochondritis, musculoskeletal pain. 0126: 12 EKG was unremarkable. Chest x-ray was normal. CBC was normal. CMP was normal. High sensitivity troponin was below detectable limits.Patient's D- dimer was below detectable limits. 0220: The patient's presentation is most consistent with musculoskeletal pain/costochondritis. The patient did feel better after receiving IV Toradol. The patient will be discharged home and advised to take Tylenol and Toradol for his pain. patient states that ibuprofen hurts stomach. Patient was given printed and verbal instructions. MDM - Chest Pain Lab Data Result diagrams: 11/02/21 00:15 11/02/21 00:15 Labs: Lab Results 11/02/21 11/02/21 11/02/21 Range/Units 00:15 00:15 00:15 WBC 10.2 (4.8-10.8) X10*3/uL RBC 5.40 (4.60-5.80) X10*6/uL Hgb 15.0 (14.0-18.0) g/dl Hct 45.8 (42.0-52.0) % MCV 84.8 (80.0-98.0) fL MCH 27.8 (27.0-33.0) pg MCHC 32.8 (31.0-36.0) g/dl RDW 15.9 (11.0-16.0) % Plt Count 297 (160-400) X10*3/uL MPV 9.9 (9.4-12.4) fL Immature Gran % (Auto) 0.3 (0.0-0.4) % Neut % (Auto) 61.1 (45-73) % Lymph % (Auto) 27.3 (20-40) % [place] % (Auto) 6.9 (2-11) % Eos % (Auto) 3.9 (0-4) % Baso % (Auto) 0.5 (0-2) % Lymph # (Auto) 2.8 (1.2-4.9) X10*3/uL [place] # (Auto) 0.7 (0.1-1.2) X10*3/uL Eos # (Auto) 0.4 (0.0-0.4) X10*3/uL Baso # (Auto) 0.1 (0.0-0.2) X10*3/uL Abs Immat Gran (auto) 0.03 (0.00-0.03) X10*3/uL Absolute Neuts (auto) 6.2 (2.0-8.3) x10*3/uL Absolute Nucleated RBC 0.000 (0.0-0.012) X10*3/uL Nucleated RBC % (auto) 0.0 (0.0-0.2) /100WBC Sodium 136 (135-145) mmol/L Potassium 4.0 (3.3-5.1) mmol/L Chloride 103 (96-108) mmol/L Carbon Dioxide 26 (22-29) mmol/L Anion Gap 11 L (12-20) BUN 15 (9-16) mg/dL Creatinine 0.90 (0.5-1.4) mg/dL Estim Creat Clear Calc 103.0 Estimated GFR > 60 Random Glucose 108 (60-115) mg/dL Calcium 9.1 (8.4-10.2) mg/dL Total Bilirubin < 0.2 (0.0-1.0) mg/dL AST 16 (5-37) U/L ALT 15 (0-40) U/L Alkaline Phosphatase 52 (39-117) U/L Troponin I High Sens < 3.5 (<3.5-35.0) ng/L Total Protein 7.4 (6.5-8.0) g/dL Albumin 3.8 (3.5-5.0) g/dL ABG Data Attestation: I personally reviewed and interpreted this ABG as follows: Interpretation: 02/09/2055: Normal sinus rhythm with a rate of 60, normal CO, QTC interval with a prolonged QRS of 144 milliseconds, no ST segment elevation, no ST elevation, no ST segment depression, no PACs, no PVCs, this is a normal EKG. Discharge Plan Discharge Clinical Impression: Acute costochondritis Patient Disposition: Home, Self-Care Instructions: Costochondritis (ED) Additional Instructions: Your blood work was unremarkable. Your EKG was normal. Your chest x-ray was normal. The pain in your chest is consistent with inflammation of the joints of your chest (costochondritis). This is treated with anti-inflammatory pain medications. Take Toradol (Ketoralac) 10 mg mg pills, 1 pills every 6 hours as needed for pain. Take Tylenol (acetaminophen) 500 mg pills, 2 pills every 4 to 6 hours as needed for pain. Follow-up with your doctor in 2 days. Please return to the emergency department if your symptoms get worse or if you develop any symptoms that are concerning to you. Prescriptions: New ketorolac 10 mg tablet 10 mg PO Q6H PRN (Reason: pain) 5 Days Qty: 15 RF: 0 No Action mesalamine 1,000 mg suppository 1,000 mg CO BEDTIME Qty: 30 RF: 2 hydrocortisone 1 % cream 1 appl topical BEDTIME 30 Days Qty: 28 RF: 1 budesonide-formoterol [Symbicort] 160-4.5 mcg/actuation HFA aerosol inhaler 2 puff inhalation BID 30 Days Qty: 10.2 RF: 11 montelukast [Singulair] 10 mg tablet 10 mg PO BEDTIME 30 Days Qty: 30 RF: 11 albuterol sulfate 2.5 mg /3 mL (0.083 %) solution for nebulization 2.5 mg inhalation Q6H PRN (Reason: shortness of breath or wheezing) Qty: 90 RF: 3 loratadine 10 mg tablet 10 mg PO DAILY Qty: 30 RF: 4 albuterol sulfate [ProAir HFA] 90 mcg/actuation HFA aerosol inhaler 2 puff inhalation Q6H PRN (Reason: shortness of breath or wheezing) Qty: 8.5 RF: 11 cholecalciferol (vitamin D3) 50 mcg (2,000 unit) capsule 2,000 unit PO DAILY 30 Days Qty: 30 RF: 6 Remicade 100 mg recon soln 800 mg IV Q4W 28 Days Qty: 8 RF: 6 fluticasone propionate [Aller-Ancelmo] 50 mcg/actuation spray,suspension 1 spray intranasal BID Qty: 16 RF: 0 triamcinolone acetonide 0.1 % cream 1 appl topical BID 14 Days Qty: 454 RF: 1 meclizine 25 mg tablet 25 mg PO DAILY PRNRF: 0 acetaminophen-codeine 300-30 mg tablet 1 tab PO Q8H Qty: 7 RF: 0
[2021-11-02 01:40] LABS: Alanine Aminotransferase 15 U/L (0-40); Albumin Level 3.8 g/dL (3.5-5.0); Alkaline Phosphatase 52 U/L (39-117); Anion Gap 11 (12-20); Aspartate Amino Transferase 16 U/L (5-37); Bilirubin Total < 0.2 mg/dL (0.0-1.0); Blood Urea Nitrogen 15 mg/dL (9-16); Calcium 9.1 mg/dL (8.4-10.2); Carbon Dioxide 26 mmol/L (22-29); Chloride 103 mmol/L (96-108); Estimated Glomerular Filt Rate > 60; Glucose Random 108 mg/dL (60-115); Sodium 136 mmol/L (135-145); Total Protein 7.4 g/dL (6.5-8.0)
[2021-11-02] MEDS: Ketorolac Tromethamine 30 MG/ML VIAL 15 MG IVPUSH (01:46)
[2021-11-02 01:59] LABS: Appearance Urine CLEAR; Color Urine YELLOW; Glucose Urine UA NEG (NEG); Leukocyte Esterase Urine NEG (NEG); Nitrite Urine NEG (NEG); Specific Gravity - Urine 1.015 (1.005-1.025); Urine Blood NEG (NEG); Urine Ketones NEG (NEG); Urine Protein NEG (NEG-TRACE)
[2021-11-02 02:05] LABS: INTERNATIONAL NORM RATIO 0.9 (0.9-1.1); Prothrombin Time 10.6 SEC (9.9-13.0)
[2021-11-02 02:08] LABS: Partial Thromboplastin Time 32.4 SEC (24.1-38.0)
[2021-11-02 02:12] LABS: D Dimer High Sensitivity < 150 NG/ML
[2021-11-02 02:53] VITALS: BP 111/71; PULSE 55; RESP 16; O2SAT 98
== END 2021-11-02 02:56 | disposition home or self-care (01) ==
PROVIDERS: Emergency Provider Emergency Medicine Emergency Medical Services
DX: M94.0 Chondrocostal junction syndrome [Tietze] (principal); R07.9 Chest pain, unspecified; Z79.899 Other long term (current) drug therapy
CPT/HCPCS: 36415; 71045; 80053; 81003; 84484; 85025; 85379; 85610; 85730; 93005; 96374; 99284; J1885

== ENCOUNTER 2021-12-05 08:56 | Outpatient (REF) | payer OTHER, SELFPAY | END 2021-12-05 08:57 | disposition home or self-care (01) | LOC: HO.MDS 08:56 | PROVIDERS: Visit Provider Internal Medicine Gastroenterology | DX: K50.90 Crohn's disease, unspecified, without complications (principal) | CPT/HCPCS: 96413; 96415; J1745 ==

== ENCOUNTER → 2021-12-09 12:07 | Outpatient (BNVA) | payer OTHER, SELFPAY | PROVIDERS: PCP Physician Assistant; Visit Provider Internal Medicine Gastroenterology ==

== ENCOUNTER 2021-12-31 09:57 | Outpatient (REF) | payer OTHER, SELFPAY ==
[2021-12-31 10:20] LABS: MANUAL DIFF FLAG NO
[2021-12-31 11:24] LABS: Basophils Percent Auto 0.4 % (0-2); Eosinophils Absolute Auto 0.3 X10*3/uL (0.0-0.4); Eosinophils Percent Auto 2.9 % (0-4); Hematocrit 46.8 % (42.0-52.0); Hemoglobin 15.3 g/dl (14.0-18.0); Imm Gran Abs Auto 0.04 X10*3/uL (0.00-0.03); Imm Gran Pct Auto 0.4 % (0.0-0.4); Lymphocytes Absolute Auto 2.9 X10*3/uL (1.2-4.9); Lymphocytes Percent Auto 28.4 % (20-40); Mean Corpuscular HGB Conc 32.7 g/dl (31.0-36.0); Mean Corpuscular Hemoglobin 28.7 pg (27.0-33.0); Mean Corpuscular Volume 87.8 fL (80.0-98.0); Monocytes Absolute Auto 0.7 X10*3/uL (0.1-1.2); Monocytes Percent Auto 6.7 % (2-11); Neutrophils Absolute Auto 6.3 x10*3/uL (2.0-8.3); Neutrophils Percent Auto 61.2 % (45-73); Platelet Count 285 X10*3/uL (160-400); Red Blood Count 5.33 X10*6/uL (4.60-5.80); Red Cell Distribution Width 15.9 % (11.0-16.0); White Blood Count 10.2 X10*3/uL (4.8-10.8)
[2021-12-31 12:03] LABS: Alanine Aminotransferase 18 U/L (0-40); Albumin Level 3.8 g/dL (3.5-5.0); Alkaline Phosphatase 47 U/L (39-117); Anion Gap 10 (12-20); Aspartate Amino Transferase 16 U/L (5-37); Bilirubin Total 0.5 mg/dL (0.0-1.0); Blood Urea Nitrogen 10 mg/dL (9-16); C Reactive Protein 0.17 mg/dL (< or = 0.50); Calcium 9.3 mg/dL (8.4-10.2); Carbon Dioxide 29 mmol/L (22-29); Chloride 102 mmol/L (96-108); Estimated Glomerular Filt Rate > 60; Glucose Random 84 mg/dL (60-115); Potassium 4.4 mmol/L (3.3-5.1); Sodium 137 mmol/L (135-145); Total Protein 7.4 g/dL (6.5-8.0)
[2021-12-31 12:24] LABS: Ferritin 18 ng/mL (20-250)
== END 2021-12-31 09:58 | disposition home or self-care (01) ==
LOC: HO.LAB 09:57
PROVIDERS: PCP Internal Medicine; Visit Provider Internal Medicine Gastroenterology
DX: K75.81 Nonalcoholic steatohepatitis (NASH) (principal); K50.90 Crohn's disease, unspecified, without complications
CPT/HCPCS: 36415; 80053; 80230; 82542; 82728; 85025; 86140

== ENCOUNTER 2022-01-07 08:36 | Outpatient (REF) | payer OTHER, SELFPAY | END 2022-01-07 08:37 | disposition home or self-care (01) | LOC: HO.MDS 08:36 | PROVIDERS: PCP Internal Medicine; Visit Provider Internal Medicine Gastroenterology | DX: K50.90 Crohn's disease, unspecified, without complications (principal) | CPT/HCPCS: 96365; J3380 ==

== ENCOUNTER 2022-01-23 22:38 | Emergency (ER) | payer OTHER, SELFPAY ==
[2022-01-23 22:54] VITALS: BP 119/66; PULSE 72; RESP 18; TEMP 36.2; O2SAT 96; BMI 27.3
--- NOTE | 2022-01-24 00:14 | ED.GENADULT ---
HPI - General Adult General Chief complaint: Abdominal Pain Stated complaint: abd pain and ear pain Time Seen by Provider: 01/24/22 00:00 Source: patient Mode of arrival: ambulatory Limitations: no limitations History of Present Illness HPI narrative: 41-year-old male who presents emergency department for evaluation of right ear pain, chest pain and left lower quadrant abdominal pain. The patient states that he has been having ear pain for approximately 2 weeks. States that the pain is a constant, hammering like sensation in his right ear. He states that the pain is 10 out 10. States that he can not hear out of the right ear but is diminished compared to the left. He was started on an antibiotic 5 days prior he states this is not help his pain. The pain does radiate to the back of his neck. He denied fever, chills, sore throat, rhinorrhea or cough. States that he has also been experiencing left-sided chest pain. He states that he has been having this intermittently over the past 1-2 months. Points to his left anterior breast area when asked to localize the pain. States the pain is sharp pain which is worse with movement and with breathing. He states the pain is also worse when he pushes on his left chest. Patient was seen in the past for similar pain and diagnosed with costochondritis. Patient does have a history of Crohn's disease. He states that he has been having left lower quadrant pain. Describes this is a constant, cramping like sensation which is 8/10 at its worst. He has not had any diarrhea. He states that he has been started on a new medication for his Crohn's disease. Related Data Home Medications Medication Instructions Recorded Confirmed meclizine 25 mg tablet 25 mg PO DAILY PRN 01/03/21 01/16/22 Previous Rx's Medication Instructions Recorded mesalamine 1,000 mg rectal 1,000 mg DC BEDTIME #30 supp 12/09/20 suppository acetaminophen 300 mg-codeine 30 mg 1 tab PO Q8H #7 tab 01/03/21 tablet hydrocortisone 1 % topical cream 1 appl TOPICAL BEDTIME 30 Days #28 02/07/21 g fluticasone propionate 50 1 spray INTRANASAL BID #16 g 04/16/21 mcg/actuation nasal spray,suspension (Aller-Ancelmo) budesonide-formoterol HFA 160 2 puff INHALATION BID 30 Days 05/29/21 mcg-4.5 mcg/actuation aerosol #10.2 g inhaler (Symbicort) montelukast 10 mg tablet 10 mg PO BEDTIME 30 Days #30 tab 05/29/21 (Singulair) albuterol sulfate 2.5 mg (3 mL) INHALATION Q6H PRN 06/01/21 #90 ml loratadine 10 mg tablet 10 mg PO DAILY #30 tab 07/21/21 albuterol sulfate 90 mcg/actuation 2 puff INHALATION Q6H PRN #8.5 g 07/30/21 aerosol inhaler (ProAir HFA) cholecalciferol (vitamin D3) 50 2,000 unit PO DAILY 30 Days #30 cap 08/26/21 mcg (2,000 unit) capsule triamcinolone acetonide 0.1 % 1 appl TOPICAL BID 14 Days #454 g 10/21/21 topical cream ketorolac 10 mg tablet 10 mg PO Q6H PRN 5 Days #15 tab 11/02/21 budesonide 9 mg tablet,delayed and 9 mg PO DAILY 210 Days #30 ea 12/09/21 extended release calcipotriene 0.005 % topical cream 1 appl TOPICAL BID #120 g 12/09/21 sulfamethoxazole 800 1 tab PO BID #14 tab 12/09/21 mg-trimethoprim 160 mg tablet (Bactrim DS) vedolizumab 300 mg intravenous 300 mg IV Q2W 14 Days #1 ea 12/10/21 solution (Entyvio) azithromycin 250 mg tablet See Rx Instructions PO .COMPLEX #6 01/16/22 tab sertraline 25 mg tablet 25 mg PO DAILY 30 Days #30 tab 01/16/22 [id number]-tmfactzkg-giuamkiod 3.5 4 drp OTIC (EAR) RIGHT QID 10 Days 01/24/22 mg-10,000 unit/mL-1 % ear #10 ml drops,susp oxycodone 5 mg tablet 5 mg PO Q6H PRN #10 tab 01/24/22 Allergies Allergy/AdvReac Type Severity Reaction Status Date / Time prednisone [PREDNISONE] Allergy Intermediate RASH Verified 01/23/22 22:54 lactose AdvReac Intermediate abdominal Uncoded 12/09/21 12:07 pain, diarrhea Review of Systems Review of Systems: Yes all other systems are reviewed and are negative PMFSH Past Medical History Medical History Anemia Anxiety Asthma Crohn disease Depression Eosinophilia Surgical History H/O colonoscopy H/O esophagogastroduodenoscopy Family History Family History Father Medical history unknown Mother Medical history unknown Social History Social History Household Members: Spouse and Children Housing: Apartment Alcohol intake: never Patient Tobacco Use Status: Never used Tobacco e-Cigarette/Vaping Use: Never Used Second Hand Smoke Exposure: Yes Advance Directives: No Advance Directives Information Provided: Yes service: No Current occupational status: unemployed Physical Exam ED Vital Signs: Vital Signs - 24 hr 01/23/22 22:54 Temperature 97.2 F Pulse Rate 72 Respiratory Rate 18 Blood Pressure 119/66 Pulse Oximetry 96 BMI result Body Mass Index 27.3 Const General: cooperative and no acute distress Orientation/consciousness: oriented to person and oriented to place Limitations: no limitations HENMT Head: Yes normal to inspection, Yes normocephalic and Yes atraumatic Ears: TM normal on the right, TM normal on the left and external ear abnormal auricular tenderness, pain with movement of external ear and other (Tragus tenderness) General nose exam: Normal external nose present Face and sinus: Yes normal facial exam Mouth: Normal oral and palatal mucosa present Throat: Yes posterior oropharynx normal Eyes General: appearance normal, both eyes and all related structures Pupils: Equal, round and reactive pupils present Neck Neck: Yes normal visual inspection, Yes no lymphadenopathy, Yes trachea midline and Yes supple Chest Chest palpation & inspection: normal inspection of the chest and tenderness (Left anterior chest wall tenderness) Resp Effort & Inspection: normal respiratory effort and able to speak in complete sentences Auscultation: clear to auscultation bilaterally Cardio Rate: regular rate Rhythm: regular rhythm Heart sounds: S1 normal heart sound present, S2 normal heart sound present and no murmurs GI Inspection: Yes normal to inspection Palpation (GI): Soft to palpation, Tenderness to palpation present (GI) in the LUQ (Mild) and no guarding Auscultation: normal bowel sounds General: Yes no CVA tenderness Back/Spine/Pelvis Back: no CVA tenderness Skin General skin exam: no rashes or lesions noted Neuro General: oriented to person and oriented to place Cranial nerves: Yes CN's II-XII intact bilaterally and Yes Equal, round and reactive pupils present Cognition (Neuro): normal cognition Motor exam (neuro): 5/5 motor strength present throughout Extrem General: Yes normal to inspection Psych Appearance: grossly normal Speech and movement: Normal speech and movement present Affect: normal affect Attitude: cooperative Thought process: Normal thought process present Thought content: Normal thought content present Course Course Course Narrative: 41-year-old male who presents emergency department for evaluation of right ear pain x2 weeks, he has been on antibiotic for 5 days with no improvement of his symptoms. He is also complaining left-sided chest pain which she has had similar pain in the past has been diagnosed with costochondritis. Patient also has Crohn's disease and is complaining of left lower quadrant pain. Vital signs were unremarkable. Patient's right ear exam is consistent with otitis externa. Patient's chest wall exam is consistent with costochondritis and the patient does have left lower quadrant tenderness consistent with his Crohn's disease. The patient was started on Cortisporin drops to the left ear times 10 days. He is also given a prescription for oxycodone. He was given printed and verbal instructions and discharged home. Discharge Plan Discharge Clinical Impression: Otitis externa, Abdominal pain, Acute costochondritis Patient Disposition: Home, Self-Care Instructions: Otitis Externa (ED), Costochondritis (ED) Prescriptions: New cttmubxv-bakzfurfr-SP 3.5-10,000-1 mg/mL-unit/mL-% drops,suspension 4 drp otic (ear) right QID 10 Days Qty: 10 0RF oxycodone 5 mg tablet 5 mg PO Q6H PRN (Reason: pain) Qty: 10 0RF Rx Instructions: Patient may request partial refill No Action mesalamine 1,000 mg suppository 1,000 mg DC BEDTIME Qty: 30 2RF hydrocortisone 1 % cream 1 appl topical BEDTIME 30 Days Qty: 28 1RF budesonide-formoterol [Symbicort] 160-4.5 mcg/actuation HFA aerosol inhaler 2 puff inhalation BID 30 Days Qty: 10.2 11RF montelukast [Singulair] 10 mg tablet 10 mg PO BEDTIME 30 Days Qty: 30 11RF albuterol sulfate 2.5 mg /3 mL (0.083 %) solution for nebulization 2.5 mg inhalation Q6H PRN (Reason: shortness of breath or wheezing) Qty: 90 3RF loratadine 10 mg tablet 10 mg PO DAILY Qty: 30 4RF albuterol sulfate [ProAir HFA] 90 mcg/actuation HFA aerosol inhaler 2 puff inhalation Q6H PRN (Reason: shortness of breath or wheezing) Qty: 8.5 11RF cholecalciferol (vitamin D3) 50 mcg (2,000 unit) capsule 2,000 unit PO DAILY 30 Days Qty: 30 6RF Entyvio 300 mg recon soln 300 mg IV Q2W 14 Days Qty: 1 8RF Rx Instructions: Infuse 300mg IV at week 0, 2, 6, then every 8 weeks. fluticasone propionate [Aller-Ancelmo] 50 mcg/actuation spray,suspension 1 spray intranasal BID Qty: 16 0RF Rx Instructions: administer into each nostril ketorolac 10 mg tablet 10 mg PO Q6H PRN (Reason: pain) 5 Days Qty: 15 0RF azithromycin 250 mg tablet See Rx Instructions PO .COMPLEX Qty: 6 0RF Rx Instructions: For 250 mg dose pack: take 500 mg today (day 1), then 250 mg for 4 days (days 2-5) PO sertraline 25 mg tablet 25 mg PO DAILY 30 Days Qty: 30 1RF triamcinolone acetonide 0.1 % cream 1 appl topical BID 14 Days Qty: 454 1RF Rx Instructions: use up to 14 days then take a 2 week break. meclizine 25 mg tablet 25 mg PO DAILY PRN0RF acetaminophen-codeine 300-30 mg tablet 1 tab PO Q8H Qty: 7 0RF calcipotriene 0.005 % cream 1 appl topical BID Qty: 120 0RF Rx Instructions: rub in gently and completely on hands and feet budesonide 9 mg tablet,delayed and ext.release 9 mg PO DAILY 210 Days Qty: 30 1RF sulfamethoxazole-trimethoprim [Bactrim DS] 800-160 mg tablet 1 tab PO BID Qty: 14 0RF
[2022-01-24 00:45] VITALS: BP 110/69; PULSE 61; RESP 16; TEMP 36.7; O2SAT 96
== END 2022-01-24 00:49 | disposition home or self-care (01) ==
PROVIDERS: Emergency Provider Emergency Medicine Emergency Medical Services; PCP Internal Medicine
DX: H60.91 Unspecified otitis externa, right ear (principal); M94.0 Chondrocostal junction syndrome [Tietze]; R10.32 Left lower quadrant pain; Z79.899 Other long term (current) drug therapy
CPT/HCPCS: 99283; 99284

== ENCOUNTER 2022-01-28 09:51 | Outpatient (REF) | payer OTHER, SELFPAY | END 2022-01-28 09:52 | disposition home or self-care (01) | LOC: HO.MDS 09:51 | PROVIDERS: PCP Internal Medicine; Visit Provider Internal Medicine Gastroenterology | DX: K50.90 Crohn's disease, unspecified, without complications (principal) | CPT/HCPCS: 96365; J3380 ==

== ENCOUNTER 2022-01-30 23:33 | Emergency (ER) | payer OTHER, SELFPAY ==
--- NOTE | ~2022-01-30 | XR_ITS ---
EXAMINATION: XR CHEST CLINICAL INFORMATION: Chest pain. COMPARISON: 11/01/2021. TECHNIQUE: Frontal view of the chest was obtained. FINDINGS: No significant abnormality is noted involving the heart, lungs, mediastinum, bony thorax or soft tissues. XR/XR chest 1V IMPRESSION: Unremarkable examination.
[2022-01-30 23:41] VITALS: BP 134/80; PULSE 79; RESP 16; TEMP 37; O2SAT 97; BMI 23.7
--- NOTE | 2022-01-30 23:47 | ECG_ITS ---
Test Reason : CP Blood Pressure : / mmHG Vent. Rate : 071 BPM Atrial Rate : 071 BPM P-R Int : 122 ms QRS Dur : 108 ms QT Int : 382 ms P-R-T Axes : 052 075 052 degrees QTc Int : 415 ms Normal sinus rhythm Normal ECG When compared with ECG of 01-NOV-2021 23:55, No significant change was found Referred By: Becky Hinojosa Electronically Signed By:JERI MUHAMMAD MD
--- NOTE | 2022-01-31 00:04 | ED.CHESTPAIN ---
HPI - Chest Pain General Chief Complaint: Chest Pain Stated Complaint: Chest pain/tightness Time Seen by Provider: 01/30/22 23:47 Source: patient Mode of arrival: ambulatory Limitations: no limitations History of Present Illness MD complaint: chest pain Onset (ago): hour(s) (started yesterday has been going on for several hours) Timing of current episode: constant Prior episodes: No Onset: during rest Pain location: substernal and right chest Pain radiation: none Severity: moderate Quality: tightness Relieving factors: nothing Exacerbating factors: nothing Associated symptoms: dyspnea Treatment prior to arrival: other (did smoke weed) Related Data Home Medications Medication Instructions Recorded Confirmed meclizine 25 mg tablet 25 mg PO DAILY PRN 01/03/21 01/16/22 Previous Rx's Medication Instructions Recorded mesalamine 1,000 mg rectal 1,000 mg VT BEDTIME #30 supp 12/09/20 suppository acetaminophen 300 mg-codeine 30 mg 1 tab PO Q8H #7 tab 01/03/21 tablet hydrocortisone 1 % topical cream 1 appl TOPICAL BEDTIME 30 Days #28 02/07/21 g fluticasone propionate 50 1 spray INTRANASAL BID #16 g 04/16/21 mcg/actuation nasal spray,suspension (Aller-Ancelmo) budesonide-formoterol HFA 160 2 puff INHALATION BID 30 Days 05/29/21 mcg-4.5 mcg/actuation aerosol #10.2 g inhaler (Symbicort) montelukast 10 mg tablet 10 mg PO BEDTIME 30 Days #30 tab 05/29/21 (Singulair) albuterol sulfate 2.5 mg (3 mL) INHALATION Q6H PRN 06/01/21 #90 ml loratadine 10 mg tablet 10 mg PO DAILY #30 tab 07/21/21 albuterol sulfate 90 mcg/actuation 2 puff INHALATION Q6H PRN #8.5 g 07/30/21 aerosol inhaler (ProAir HFA) cholecalciferol (vitamin D3) 50 2,000 unit PO DAILY 30 Days #30 cap 08/26/21 mcg (2,000 unit) capsule triamcinolone acetonide 0.1 % 1 appl TOPICAL BID 14 Days #454 g 10/21/21 topical cream ketorolac 10 mg tablet 10 mg PO Q6H PRN 5 Days #15 tab 11/02/21 budesonide 9 mg tablet,delayed and 9 mg PO DAILY 210 Days #30 ea 12/09/21 extended release calcipotriene 0.005 % topical cream 1 appl TOPICAL BID #120 g 12/09/21 sulfamethoxazole 800 1 tab PO BID #14 tab 12/09/21 mg-trimethoprim 160 mg tablet (Bactrim DS) vedolizumab 300 mg intravenous 300 mg IV Q2W 14 Days #1 ea 12/10/21 solution (Entyvio) azithromycin 250 mg tablet See Rx Instructions PO .COMPLEX #6 01/16/22 tab sertraline 25 mg tablet 25 mg PO DAILY 30 Days #30 tab 01/16/22 [id number]-yrudwiefd-kscitincq 3.5 4 drp OTIC (EAR) RIGHT QID 10 Days 01/24/22 mg-10,000 unit/mL-1 % ear #10 ml drops,susp oxycodone 5 mg tablet 5 mg PO Q6H PRN #10 tab 01/24/22 Allergies Allergy/AdvReac Type Severity Reaction Status Date / Time prednisone [PREDNISONE] Allergy Intermediate RASH Verified 01/23/22 22:54 lactose AdvReac Intermediate abdominal Uncoded 12/09/21 12:07 pain, diarrhea Review of Systems Review of Systems: Constitutional : No Weight loss, No Fever, No Chills ENT/Mouth : No sore throat, No Rhinorrhea Eyes: No Eye Pain, No Swelling Cardiovascular : pos Chest Pain, pos SOB, no Dyspnea on Exertion, No Orthopnea, No Edema, No Palpitations Respiratory : No Cough, No Sputum Gastrointestinal : no Nausea, No Vomiting, No Diarrhea, No abdominal Pain, No Hematochezia, No Melena Genitourinary : No Dysuria, No Urinary Frequency Musculoskeletal : No joint pain, No Myalgias, No Joint Swelling Skin : No Skin Lesions, No rash Neuro : No Weakness, No Numbness, No Dizziness, No Headache Psych : No Anxiety/Panic, No Depression Heme/Lymph: No Bruising, No Lymphadenopathy Endocrine : No Polyuria, No Polydipsia All other systems reviewed and are negative [facility] Past Medical History Attestation statement: The following information was validated with the patient. Medical History Anemia Anxiety Asthma Crohn disease Depression Eosinophilia Surgical History H/O colonoscopy H/O esophagogastroduodenoscopy Family History Family History Father Medical history unknown Mother Medical history unknown Social History Social History Household Members: Spouse and Children Housing: Apartment Alcohol intake: never Patient Tobacco Use Status: Never used Tobacco e-Cigarette/Vaping Use: Never Used Second Hand Smoke Exposure: Yes Advance Directives: No service: No Current occupational status: unemployed Physical Exam Vital Signs: Vital Signs: Last Vital Signs Temp 98.6 F 01/30/22 23:41 Pulse 72 01/31/22 00:49 Resp 19 01/31/22 00:49 BP 120/75 01/31/22 00:49 Pulse Ox 97 01/31/22 00:49 BMI result Body Mass Index 23.7 Appearance: Alert. Oriented X3. No acute distress. Appears anxious, refused clinical haematologist Eyes: Pupils equal, round and reactive to light. ENT: Pharynx normal. Neck: Normal inspection. Neck supple. CVS: Normal heart rate and rhythm. Pulses normal. Respiratory: No respiratory distress. Breath sounds normal. Abdomen: Soft and non-tender. Skin: Skin warm and dry. Normal skin color. Normal skin turgor. Extremities: No lower extremity edema. No calf ttp Neuro: Oriented X 3. No motor deficit. No sensory deficit. Course Course Course Narrative: EKG nonischemic, trop negative after several hours of chest pain all day > 6 MDM - Chest Pain MDM Narrative Medical decision making narrative: 41 yo male with hx of anxiety, asthma, Crohn's disease, here with c/o not feeling good all day and points to his chest - he feels that he has chest pain and some anxiety, did try to smoke weed today. He is PERC negative, his symptoms are atypical. He denies his THC could have PCP or cocaine in it. At this time will obtain EKG, CXR, troponin and given PO ativan for anxiety. Lab Data Result diagrams: 01/31/22 00:46 01/31/22 00:46 Labs: Lab Results 01/31/22 01/31/22 01/31/22 Range/Units 00:46 00:46 00:46 WBC 9.0 (4.8-10.8) X10*3/uL RBC 5.21 (4.60-5.80) X10*6/uL Hgb 15.3 (14.0-18.0) g/dl Hct 46.4 (42.0-52.0) % MCV 89.1 (80.0-98.0) fL MCH 29.4 (27.0-33.0) pg MCHC 33.0 (31.0-36.0) g/dl RDW 14.5 (11.0-16.0) % Plt Count 321 (160-400) X10*3/uL MPV 10.0 (9.4-12.4) fL Immature Gran % (Auto) 0.7 H (0.0-0.4) % Neut % (Auto) 55.8 (45-73) % Lymph % (Auto) 28.0 (20-40) % [place] % (Auto) 11.7 H (2-11) % Eos % (Auto) 3.1 (0-4) % Baso % (Auto) 0.7 (0-2) % Lymph # (Auto) 2.5 (1.2-4.9) X10*3/uL [place] # (Auto) 1.1 (0.1-1.2) X10*3/uL Eos # (Auto) 0.3 (0.0-0.4) X10*3/uL Baso # (Auto) 0.1 (0.0-0.2) X10*3/uL Abs Immat Gran (auto) 0.06 H (0.00-0.03) X10*3/uL Absolute Neuts (auto) 5.0 (2.0-8.3) x10*3/uL Absolute Nucleated RBC 0.000 (0.0-0.012) X10*3/uL Nucleated RBC % (auto) 0.0 (0.0-0.2) /100WBC Sodium 136 (135-145) mmol/L Potassium 4.2 (3.3-5.1) mmol/L Chloride 101 (96-108) mmol/L Carbon Dioxide 26 (22-29) mmol/L Anion Gap 13 (12-20) BUN 14 (9-16) mg/dL Creatinine 0.90 (0.5-1.4) mg/dL Estim Creat Clear Calc 120.9 Estimated GFR > 60 Random Glucose 91 (60-115) mg/dL Calcium 9.3 (8.4-10.2) mg/dL Troponin I High Sens < 3.5 (<3.5-35.0) ng/L ECG Data ECG #1: Attestation: I personally reviewed and interpreted this ECG as follows: ECG interpretation date: 01/31/22 ECG interpretation time: 00:05 Interpretation: Rate: 71 Rhythm: NSR [place]: normal Normal P waves. Normal KAYY. Normal QRS complex. ST T wave : no TABITHA qTC: normal prior studies: no acute ischemia The study has been interpreted contemporaneously by me. . Discharge Plan Discharge Clinical Impression: Atypical chest pain Patient Disposition: Home, Self-Care Instructions: Chest Pain (ED) Additional Instructions: return to ED for any worsening symptoms or concerns blood work for heart was normal, EKG and chest xray was normal Prescriptions: No Action mesalamine 1,000 mg suppository 1,000 mg VT BEDTIME Qty: 30 2RF hydrocortisone 1 % cream 1 appl topical BEDTIME 30 Days Qty: 28 1RF budesonide-formoterol [Symbicort] 160-4.5 mcg/actuation HFA aerosol inhaler 2 puff inhalation BID 30 Days Qty: 10.2 11RF montelukast [Singulair] 10 mg tablet 10 mg PO BEDTIME 30 Days Qty: 30 11RF albuterol sulfate 2.5 mg /3 mL (0.083 %) solution for nebulization 2.5 mg inhalation Q6H PRN (Reason: shortness of breath or wheezing) Qty: 90 3RF loratadine 10 mg tablet 10 mg PO DAILY Qty: 30 4RF albuterol sulfate [ProAir HFA] 90 mcg/actuation HFA aerosol inhaler 2 puff inhalation Q6H PRN (Reason: shortness of breath or wheezing) Qty: 8.5 11RF cholecalciferol (vitamin D3) 50 mcg (2,000 unit) capsule 2,000 unit PO DAILY 30 Days Qty: 30 6RF Entyvio 300 mg recon soln 300 mg IV Q2W 14 Days Qty: 1 8RF Rx Instructions: Infuse 300mg IV at week 0, 2, 6, then every 8 weeks. fluticasone propionate [Aller-Ancelmo] 50 mcg/actuation spray,suspension 1 spray intranasal BID Qty: 16 0RF Rx Instructions: administer into each nostril ketorolac 10 mg tablet 10 mg PO Q6H PRN (Reason: pain) 5 Days Qty: 15 0RF muberdtg-vaxzdnpym-AA 3.5-10,000-1 mg/mL-unit/mL-% drops,suspension 4 drp otic (ear) right QID 10 Days Qty: 10 0RF oxycodone 5 mg tablet 5 mg PO Q6H PRN (Reason: pain) Qty: 10 0RF Rx Instructions: Patient may request partial refill azithromycin 250 mg tablet See Rx Instructions PO .COMPLEX Qty: 6 0RF Rx Instructions: For 250 mg dose pack: take 500 mg today (day 1), then 250 mg for 4 days (days 2-5) PO sertraline 25 mg tablet 25 mg PO DAILY 30 Days Qty: 30 1RF triamcinolone acetonide 0.1 % cream 1 appl topical BID 14 Days Qty: 454 1RF Rx Instructions: use up to 14 days then take a 2 week break. meclizine 25 mg tablet 25 mg PO DAILY PRN0RF acetaminophen-codeine 300-30 mg tablet 1 tab PO Q8H Qty: 7 0RF calcipotriene 0.005 % cream 1 appl topical BID Qty: 120 0RF Rx Instructions: rub in gently and completely on hands and feet budesonide 9 mg tablet,delayed and ext.release 9 mg PO DAILY 210 Days Qty: 30 1RF sulfamethoxazole-trimethoprim [Bactrim DS] 800-160 mg tablet 1 tab PO BID Qty: 14 0RF Referrals: Zuleima Chicas MD [Primary Care Provider] - 2 days (if not better) Print Language: Colombian
[2022-01-31] MEDS: LORazepam 1 MG TABLET PO (00:38)
[2022-01-31 00:49] VITALS: BP 120/75; PULSE 72; RESP 19; O2SAT 97
[2022-01-31 00:51] LABS: MANUAL DIFF FLAG NO
[2022-01-31 00:52] LABS: Basophils Absolute Auto 0.1 X10*3/uL (0.0-0.2); Basophils Percent Auto 0.7 % (0-2); Eosinophils Absolute Auto 0.3 X10*3/uL (0.0-0.4); Eosinophils Percent Auto 3.1 % (0-4); Hematocrit 46.4 % (42.0-52.0); Hemoglobin 15.3 g/dl (14.0-18.0); Imm Gran Abs Auto 0.06 X10*3/uL (0.00-0.03); Imm Gran Pct Auto 0.7 % (0.0-0.4); Lymphocytes Absolute Auto 2.5 X10*3/uL (1.2-4.9); Mean Corpuscular Hemoglobin 29.4 pg (27.0-33.0); Mean Corpuscular Volume 89.1 fL (80.0-98.0); Monocytes Absolute Auto 1.1 X10*3/uL (0.1-1.2); Monocytes Percent Auto 11.7 % (2-11); Neutrophils Percent Auto 55.8 % (45-73); Platelet Count 321 X10*3/uL (160-400); Red Blood Count 5.21 X10*6/uL (4.60-5.80); Red Cell Distribution Width 14.5 % (11.0-16.0)
[2022-01-31 01:22] LABS: Troponin-I High Sensitivity < 3.5 ng/L (<3.5-35.0)
[2022-01-31 01:38] LABS: Anion Gap 13 (12-20); Blood Urea Nitrogen 14 mg/dL (9-16); Calcium 9.3 mg/dL (8.4-10.2); Carbon Dioxide 26 mmol/L (22-29); Chloride 101 mmol/L (96-108); Creatinine Clr Calc Pharmacy 120.9; Estimated Glomerular Filt Rate > 60; Glucose Random 91 mg/dL (60-115); Potassium 4.2 mmol/L (3.3-5.1); Sodium 136 mmol/L (135-145)
[2022-01-31 01:48] VITALS: BP 108/75; PULSE 68; RESP 17; O2SAT 98
== END 2022-01-31 01:54 | disposition home or self-care (01) ==
PROVIDERS: Emergency Provider Emergency Medicine; PCP Internal Medicine
DX: R07.89 Other chest pain (principal)
CPT/HCPCS: 36415; 71045; 80048; 84484; 85025; 93005; 99283; 99284

== ENCOUNTER 2022-02-12 01:27 | Emergency (ER) | payer OTHER, SELFPAY ==
[2022-02-12 01:36] VITALS: BP 115/71; PULSE 59; RESP 16; TEMP 37.2; O2SAT 98; BMI 25.7
[2022-02-12 02:18] LABS: COVID-19 Test Negative (Negative)
== END 2022-02-12 03:47 | disposition left against medical advice (07) ==
PROVIDERS: Emergency Provider Emergency Medicine
DX: H92.01 Otalgia, right ear (principal); Z20.822 Contact with and (suspected) exposure to COVID-19
CPT/HCPCS: 87635; 99282; 99283

== ENCOUNTER 2022-02-25 11:07 | Outpatient (REF) | payer OTHER, SELFPAY | END 2022-02-25 11:08 | disposition home or self-care (01) | LOC: HO.MDS 11:07 | PROVIDERS: PCP Internal Medicine; Visit Provider Internal Medicine Gastroenterology | DX: K50.90 Crohn's disease, unspecified, without complications (principal) | CPT/HCPCS: 96365; J3380 ==

== ENCOUNTER 2022-03-19 00:27 | Emergency (ER) | payer OTHER, SELFPAY ==
[2022-03-19 01:40] VITALS: BP 132/75; PULSE 81; RESP 16; TEMP 36.3; O2SAT 98; BMI 25.8
--- NOTE | 2022-03-19 01:55 | ED_ITS ---
HPI - Abdominal Pain General Chief Complaint: Abdominal Pain Stated Complaint: Abd pain Time Seen by Provider: 03/19/22 01:55 Source: patient Mode of arrival: ambulatory Limitations: no limitations History of Present Illness HPI narrative: Patient with history of Crohn disease on entivio had some food which was greasy earlier since then complaining of pain diffuse in abdomen no nausea no vomiting no diarrhea feels bloated usually when he gets Crohn disease flare-up it does get more pain with blood in the stool does not look like at this time and is been stable from Crohn disease for some time Related Data Previous Rx's Medication Instructions Recorded hydrocortisone 1 % topical cream 1 appl TOPICAL BEDTIME 30 Days #28 02/07/21 g budesonide-formoterol HFA 160 2 puff INHALATION BID 30 Days 05/29/21 mcg-4.5 mcg/actuation aerosol #10.2 g inhaler (Symbicort) montelukast 10 mg tablet 10 mg PO BEDTIME 30 Days #30 tab 05/29/21 (Singulair) albuterol sulfate 2.5 mg (3 mL) INHALATION Q6H PRN 06/01/21 #90 ml loratadine 10 mg tablet 10 mg PO DAILY #30 tab 07/21/21 albuterol sulfate 90 mcg/actuation 2 puff INHALATION Q6H PRN #8.5 g 07/30/21 aerosol inhaler (ProAir HFA) cholecalciferol (vitamin D3) 50 2,000 unit PO DAILY 30 Days #30 cap 08/26/21 mcg (2,000 unit) capsule budesonide 9 mg tablet,delayed and 9 mg PO DAILY 210 Days #30 ea 12/09/21 extended release vedolizumab 300 mg intravenous 300 mg IV Q2W 14 Days #1 ea 12/10/21 solution (Entyvio) hydrocortisone-acetic acid 1 %-2 % 4 drp OTIC (EARS) QID 7 Days #10 ml 02/13/22 ear drops levofloxacin 500 mg tablet 500 mg PO DAILY #7 tab 02/13/22 oxycodone 5 mg tablet 5 mg PO DAILY PRN 3 Days #3 tab 02/18/22 sertraline 25 mg tablet 25 mg PO DAILY 90 Days #90 tab 03/10/22 nebulizers (AeroEclipse II #1 ea 03/11/22 Nebulizer) dicyclomine 20 mg tablet 20 mg PO QID PRN #20 tab 03/19/22 Allergies Allergy/AdvReac Type Severity Reaction Status Date / Time prednisone [PREDNISONE] Allergy Intermediate RASH Verified 02/18/22 09:03 lactose AdvReac Intermediate abdominal Uncoded 02/18/22 09:03 pain, diarrhea Review of Systems Review of Systems Yes all other systems are reviewed and are negative PMFSH Past Medical History Medical History Anemia Anxiety Asthma Crohn disease Depression Eosinophilia Mild recurrent major depression Physical exam Surgical History H/O colonoscopy H/O esophagogastroduodenoscopy Family History Family History Father Medical history unknown Mother Medical history unknown Social History Social History Household Members: Spouse and Children Housing: Apartment Alcohol intake: never Patient Tobacco Use Status: Never used Tobacco e-Cigarette/Vaping Use: Never Used Second Hand Smoke Exposure: Yes Substance Use Type: Marijuana Advance Directives: No service: No Current occupational status: unemployed Cognitive needs: No Hearing needs: No Vision needs: No Physical Exam ED Vital Signs: Vital Signs - 24 hr 03/19/22 01:40 Temperature 97.3 F Pulse Rate 81 Respiratory Rate 16 Blood Pressure 132/75 Pulse Oximetry 98 BMI result Body Mass Index 25.8 Appearance: Alert. Oriented X3. No acute distress. Eyes: No pallor or icterus ENT: Pharynx normal. Oral Mucosa moist Neck: Normal inspection. Neck supple. CVS: Normal heart rate and rhythm. Pulses normal. Respiratory: No respiratory distress. Equal air entry bilateral, no wheezin g/rales/rhonchi Abdomen: Soft , mild diffuse tenderness no rebound or guarding Bowel sounds are present, no mass palpable, no CVA tenderness Skin: Skin warm and dry. Normal skin color. Normal skin turgor. Extremities: No lower extremity edema. No calf tenderness Neuro: Oriented X 3. MDM - Abdominal Pain Lab Data Attestation: I reviewed the patient's lab results. Result diagrams: 03/19/22 02:05 03/19/22 02:05 Labs: Lab Results 04/27/22 04/27/22 Range/Units 02:05 02:05 WBC 9.4 (4.8-10.8) X10*3/uL RBC 5.15 (4.60-5.80) X10*6/uL Hgb 14.9 (14.0-18.0) g/dl Hct 45.2 (42.0-52.0) % MCV 87.8 (80.0-98.0) fL MCH 28.9 (27.0-33.0) pg MCHC 33.0 (31.0-36.0) g/dl RDW 13.7 (11.0-16.0) % Plt Count 300 (160-400) X10*3/uL MPV 10.0 (9.4-12.4) fL Immature Gran % (Auto) 0.2 (0.0-0.4) % Neut % (Auto) 67.9 (45-73) % Lymph % (Auto) 21.0 (20-40) % [place] % (Auto) 7.4 (2-11) % Eos % (Auto) 3.0 (0-4) % Baso % (Auto) 0.5 (0-2) % Lymph # (Auto) 2.0 (1.2-4.9) X10*3/uL [place] # (Auto) 0.7 (0.1-1.2) X10*3/uL Eos # (Auto) 0.3 (0.0-0.4) X10*3/uL Baso # (Auto) 0.1 (0.0-0.2) X10*3/uL Abs Immat Gran (auto) 0.02 (0.00-0.03) X10*3/uL Absolute Neuts (auto) 6.4 (2.0-8.3) x10*3/uL Absolute Nucleated RBC 0.000 (0.0-0.012) X10*3/uL Nucleated RBC % (auto) 0.0 (0.0-0.2) /100WBC Sodium 137 (135-145) mmol/L Potassium 4.1 (3.3-5.1) mmol/L Chloride 101 (96-108) mmol/L Carbon Dioxide 31 H (22-29) mmol/L Anion Gap 9 L (12-20) BUN 15 (9-16) mg/dL Creatinine 0.87 (0.5-1.4) mg/dL Estim Creat Clear Calc 106.5 Estimated GFR > 60 Random Glucose 89 (60-115) mg/dL Calcium 9.2 (8.4-10.2) mg/dL Total Bilirubin 0.3 (0.0-1.0) mg/dL AST 29 D (5-37) U/L ALT 28 (0-40) U/L Alkaline Phosphatase 56 (39-117) U/L C-Reactive Protein 1.02 H (< or = 0.50) mg/dL Total Protein 7.1 (6.5-8.0) g/dL Albumin 3.7 (3.5-5.0) g/dL Lipase 26 (8-78) U/L Discharge Plan Discharge Clinical Impression: Abdominal pain Patient Disposition: Home, Self-Care Instructions: Abdominal Pain (ED) Additional Instructions: Drink plenty of fluids Report to the ER/PCP if pain gets worse/blood in the stool/fever Dicyclomine for abdominal cramps Prescriptions: New dicyclomine 20 mg tablet 20 mg PO QID PRN (Reason: abdominal pain) Qty: 20 0RF No Action hydrocortisone 1 % cream 1 appl topical BEDTIME 30 Days Qty: 28 1RF budesonide-formoterol [Symbicort] 160-4.5 mcg/actuation HFA aerosol inhaler 2 puff inhalation BID 30 Days Qty: 10.2 11RF montelukast [Singulair] 10 mg tablet 10 mg PO BEDTIME 30 Days Qty: 30 11RF albuterol sulfate 2.5 mg /3 mL (0.083 %) solution for nebulization 2.5 mg inhalation Q6H PRN (Reason: shortness of breath or wheezing) Qty: 90 3RF loratadine 10 mg tablet 10 mg PO DAILY Qty: 30 4RF albuterol sulfate [ProAir HFA] 90 mcg/actuation HFA aerosol inhaler 2 puff inhalation Q6H PRN (Reason: shortness of breath or wheezing) Qty: 8.5 11RF cholecalciferol (vitamin D3) 50 mcg (2,000 unit) capsule 2,000 unit PO DAILY 30 Days Qty: 30 6RF Entyvio 300 mg recon soln 300 mg IV Q2W 14 Days Qty: 1 8RF Rx Instructions: Infuse 300mg IV at week 0, 2, 6, then every 8 weeks. sertraline 25 mg tablet 25 mg PO DAILY 90 Days Qty: 90 0RF (DME) AeroEclipse II Nebulizer Misc See Rx Instructions .Route Qty: 1 0RF Rx Instructions: As directed oxycodone 5 mg tablet 5 mg PO DAILY PRN (Reason: pain) 3 Days Qty: 3 0RF hydrocortisone-acetic acid 1-2 % drops 4 drp otic (ears) QID 7 Days Qty: 10 0RF levofloxacin 500 mg tablet 500 mg PO DAILY Qty: 7 0RF budesonide 9 mg tablet,delayed and ext.release 9 mg PO DAILY 210 Days Qty: 30 1RF Interventions: ED Discharge Assessment Last Done: 03/19/22 04:04 Discharge Date/Time: 03/19/22 04:04
[2022-03-19 02:17] LABS: Basophils Absolute Auto 0.1 X10*3/uL (0.0-0.2); Basophils Percent Auto 0.5 % (0-2); Eosinophils Absolute Auto 0.3 X10*3/uL (0.0-0.4); Hematocrit 45.2 % (42.0-52.0); Hemoglobin 14.9 g/dl (14.0-18.0); Imm Gran Abs Auto 0.02 X10*3/uL (0.00-0.03); Imm Gran Pct Auto 0.2 % (0.0-0.4); MANUAL DIFF FLAG NO; Mean Corpuscular Hemoglobin 28.9 pg (27.0-33.0); Mean Corpuscular Volume 87.8 fL (80.0-98.0); Monocytes Absolute Auto 0.7 X10*3/uL (0.1-1.2); Monocytes Percent Auto 7.4 % (2-11); Neutrophils Absolute Auto 6.4 x10*3/uL (2.0-8.3); Neutrophils Percent Auto 67.9 % (45-73); Platelet Count 300 X10*3/uL (160-400); Red Blood Count 5.15 X10*6/uL (4.60-5.80); Red Cell Distribution Width 13.7 % (11.0-16.0); White Blood Count 9.4 X10*3/uL (4.8-10.8)
[2022-03-19] MEDS: ondansetron HCL 4 MG/2 ML VIAL IVPUSH (02:17)
[2022-03-19] MEDS: 0.9 % Sodium Chloride 1,000 ML 999 ML IV (02:18)
[2022-03-19 02:40] LABS: Alanine Aminotransferase 28 U/L (0-40); Albumin Level 3.7 g/dL (3.5-5.0); Alkaline Phosphatase 56 U/L (39-117); Anion Gap 9 (12-20); Aspartate Amino Transferase 29 U/L (5-37); Bilirubin Total 0.3 mg/dL (0.0-1.0); Blood Urea Nitrogen 15 mg/dL (9-16); C Reactive Protein 1.02 mg/dL (< or = 0.50); Calcium 9.2 mg/dL (8.4-10.2); Carbon Dioxide 31 mmol/L (22-29); Chloride 101 mmol/L (96-108); Creatinine Clr Calc Pharmacy 106.5; Estimated Glomerular Filt Rate > 60; Glucose Random 89 mg/dL (60-115); Lipase 26 U/L (8-78); Potassium 4.1 mmol/L (3.3-5.1); Sodium 137 mmol/L (135-145); Total Protein 7.1 g/dL (6.5-8.0)
[2022-03-19] MEDS: Dicyclomine HCl 10 MG CAPSULE 20 MG PO (03:19)
[2022-03-19] MEDS: Ketorolac Tromethamine 30 MG/ML VIAL IVPUSH (03:19)
== END 2022-03-19 04:04 | disposition home or self-care (01) ==
PROVIDERS: Emergency Provider Internal Medicine; PCP Internal Medicine
DX: R10.9 Unspecified abdominal pain (principal); K50.90 Crohn's disease, unspecified, without complications; J45.909 Unspecified asthma, uncomplicated; Z79.899 Other long term (current) drug therapy
CPT/HCPCS: 36415; 80053; 83690; 85025; 86140; 96361; 96374; 96375; 99283; 99284; J1885; J2405

== ENCOUNTER 2022-04-29 09:26 | Outpatient (REF) | payer OTHER, SELFPAY | END 2022-04-29 09:27 | disposition home or self-care (01) | LOC: HO.MDS 09:26 | PROVIDERS: Visit Provider Internal Medicine Gastroenterology | DX: K50.90 Crohn's disease, unspecified, without complications (principal) | CPT/HCPCS: 96365; J3380 ==

== ENCOUNTER 2022-05-05 18:45 | Emergency (ER) | payer OTHER, SELFPAY ==
[2022-05-05 19:13] VITALS: BP 132/73; PULSE 86; RESP 18; TEMP 37; O2SAT 97; BMI 25.5
[2022-05-05 20:34] LABS: MANUAL DIFF FLAG NO
[2022-05-05 20:45] LABS: Basophils Absolute Auto 0.1 X10*3/uL (0.0-0.2); Basophils Percent Auto 0.7 % (0-2); Eosinophils Absolute Auto 0.4 X10*3/uL (0.0-0.4); Eosinophils Percent Auto 4.6 % (0-4); Hematocrit 49.5 % (42.0-52.0); Imm Gran Abs Auto 0.03 X10*3/uL (0.00-0.03); Imm Gran Pct Auto 0.4 % (0.0-0.4); Lymphocytes Absolute Auto 2.3 X10*3/uL (1.2-4.9); Lymphocytes Percent Auto 27.3 % (20-40); Mean Corpuscular HGB Conc 32.3 g/dl (31.0-36.0); Mean Corpuscular Hemoglobin 28.4 pg (27.0-33.0); Mean Corpuscular Volume 87.8 fL (80.0-98.0); Mean Platelet Volume 9.5 fL (9.4-12.4); Monocytes Absolute Auto 0.7 X10*3/uL (0.1-1.2); Monocytes Percent Auto 8.3 % (2-11); Neutrophils Absolute Auto 4.9 x10*3/uL (2.0-8.3); Neutrophils Percent Auto 58.7 % (45-73); Platelet Count 368 X10*3/uL (160-400); Red Blood Count 5.64 X10*6/uL (4.60-5.80); Red Cell Distribution Width 14.5 % (11.0-16.0); White Blood Count 8.3 X10*3/uL (4.8-10.8)
[2022-05-05 20:51] LABS: Alanine Aminotransferase 22 U/L (0-40); Albumin Level 3.5 g/dL (3.5-5.0); Alkaline Phosphatase 53 U/L (39-117); Anion Gap 11 (12-20); Aspartate Amino Transferase 18 U/L (5-37); Bilirubin Total 0.3 mg/dL (0.0-1.0); Blood Urea Nitrogen 15 mg/dL (9-16); Carbon Dioxide 30 mmol/L (22-29); Chloride 100 mmol/L (96-108); Creatinine Clr Calc Pharmacy 93.6; Estimated Glomerular Filt Rate > 60; Glucose Random 96 mg/dL (60-115); Potassium 4.5 mmol/L (3.3-5.1); Sodium 136 mmol/L (135-145); Total Protein 6.8 g/dL (6.5-8.0)
== END 2022-05-05 22:09 | disposition left against medical advice (07) ==
PROVIDERS: Emergency Provider Emergency Medicine; PCP Internal Medicine
DX: M79.89 Other specified soft tissue disorders (principal)
CPT/HCPCS: 36415; 80053; 85025; 99281; 99283

== ENCOUNTER 2022-05-28 10:51 | Outpatient (REF) | payer OTHER, SELFPAY ==
[2022-05-28 12:02] LABS: Appearance Urine CLEAR; Color Urine YELLOW; Glucose Urine UA NEG (NEG); Leukocyte Esterase Urine NEG (NEG); Nitrite Urine NEG (NEG); PH 5.5 (5.0-8.0); Specific Gravity - Urine 1.025 (1.005-1.025); UACC Culture Trigger NO; Urine Blood TRACE (NEG); Urine Ketones NEG (NEG); Urine Protein NEG (NEG-TRACE)
[2022-05-28 12:13] LABS: RBC Urine 0-2 /HPF (0); WBC Urine 0 /HPF (0-4)
[2022-05-28 17:35] LABS: Uric Acid 6.1 mg/dL (3.4-7.0)
== END 2022-05-28 10:52 | disposition home or self-care (01) ==
LOC: HO.LAB 10:51
PROVIDERS: Internal Medicine Gastroenterology; Nurse Practitioner Family; PCP Internal Medicine; Visit Provider Internal Medicine
DX: R30.0 Dysuria (principal); K50.90 Crohn's disease, unspecified, without complications; M79.89 Other specified soft tissue disorders; J45.909 Unspecified asthma, uncomplicated
CPT/HCPCS: 36415; 80230; 81001; 81003; 82542; 84550

== ENCOUNTER 2022-06-12 20:46 | Emergency (ER) | payer OTHER, SELFPAY ==
[2022-06-12 20:49] VITALS: BP 143/75; PULSE 90; RESP 20; TEMP 36.2; O2SAT 96; BMI 25.8
[2022-06-12 21:23] LABS: MANUAL DIFF FLAG NO
[2022-06-12 21:25] LABS: Basophils Absolute Auto 0.1 X10*3/uL (0.0-0.2); Basophils Percent Auto 0.5 % (0-2); Eosinophils Absolute Auto 0.3 X10*3/uL (0.0-0.4); Eosinophils Percent Auto 2.7 % (0-4); Hematocrit 46.4 % (42.0-52.0); Imm Gran Abs Auto 0.02 X10*3/uL (0.00-0.03); Imm Gran Pct Auto 0.2 % (0.0-0.4); Lymphocytes Absolute Auto 1.7 X10*3/uL (1.2-4.9); Lymphocytes Percent Auto 15.4 % (20-40); Mean Corpuscular HGB Conc 32.3 g/dl (31.0-36.0); Mean Corpuscular Hemoglobin 26.9 pg (27.0-33.0); Mean Corpuscular Volume 83.2 fL (80.0-98.0); Mean Platelet Volume 9.2 fL (9.4-12.4); Monocytes Absolute Auto 0.8 X10*3/uL (0.1-1.2); Monocytes Percent Auto 7.5 % (2-11); Neutrophils Absolute Auto 8.1 x10*3/uL (2.0-8.3); Neutrophils Percent Auto 73.7 % (45-73); Platelet Count 339 X10*3/uL (160-400); Red Blood Count 5.58 X10*6/uL (4.60-5.80); Red Cell Distribution Width 14.1 % (11.0-16.0)
[2022-06-12 21:45] LABS: Alanine Aminotransferase 23 U/L (0-40); Albumin Level 3.7 g/dL (3.5-5.0); Alkaline Phosphatase 42 U/L (39-117); Anion Gap 11 (12-20); Aspartate Amino Transferase 28 U/L (5-37); Bilirubin Total 0.2 mg/dL (0.0-1.0); Blood Urea Nitrogen 15 mg/dL (9-16); Calcium 8.7 mg/dL (8.4-10.2); Carbon Dioxide 26 mmol/L (22-29); Chloride 103 mmol/L (96-108); Creatinine Clr Calc Pharmacy 88.3; Estimated Glomerular Filt Rate > 60; Glucose Random 96 mg/dL (60-115); Potassium 4.3 mmol/L (3.3-5.1); Sodium 136 mmol/L (135-145); Total Protein 6.9 g/dL (6.5-8.0)
--- NOTE | 2022-06-12 21:57 | ED_ITS ---
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 but now pain for last 5 days getting worse with throbbing feeling no pus discharge Related Data Previous Rx's Medication Instructions Recorded hydrocortisone 1 % topical cream 1 appl topical BEDTIME 30 days #28 02/07/21 grams budesonide-formoterol HFA 160 2 puff inhalation BID 30 days 05/29/21 mcg-4.5 mcg/actuation aerosol #10.2 grams inhaler (Symbicort) montelukast 10 mg tablet 10 mg PO BEDTIME 30 days #30 tabs 05/29/21 (Singulair) albuterol sulfate 2.5 mg/3 mL 2.5 mg (3 mL) inhalation Q6H PRN 06/01/21 (0.083 %) solution for nebulization shortness of breath or wheezing #90 mL loratadine 10 mg tablet 10 mg PO DAILY #30 tabs 07/21/21 albuterol sulfate 90 mcg/actuation 2 puff inhalation Q6H PRN 07/30/21 aerosol inhaler (ProAir HFA) shortness of breath or wheezing #8.5 grams cholecalciferol (vitamin D3) 50 2,000 unit PO DAILY 30 days #30 08/26/21 mcg (2,000 unit) capsule caps budesonide 9 mg tablet,delayed and 9 mg PO DAILY 30 weeks #30 ea 12/09/21 extended release vedolizumab 300 mg intravenous 300 mg IV Q2W 14 days #1 ea 12/10/21 solution (Entyvio) hydrocortisone-acetic acid 1 %-2 % 4 drp otic (ears) QID 7 days #10 mL 02/13/22 ear drops sertraline 25 mg tablet 25 mg PO DAILY 90 days #90 tabs 03/10/22 nebulizers (AeroEclipse II #1 ea 03/11/22 Nebulizer) dicyclomine 20 mg tablet 20 mg PO QID PRN abdominal pain 04/01/22 #30 tabs cephalexin 500 mg tablet 500 mg PO Q12H 7 days #14 tabs 05/15/22 cephalexin 500 mg capsule 500 mg PO QID 10 days #40 caps 06/12/22 doxycycline hyclate 100 mg tablet 100 mg PO BID #20 tabs 06/12/22 oxycodone 5 mg tablet 5 mg PO Q6H PRN pain #20 tabs 06/12/22 Allergies Allergy/AdvReac Type Severity Reaction Status Date / Time prednisone [PREDNISONE] Allergy Intermediate RASH Verified 05/15/22 08:55 lactose AdvReac Intermediate abdominal Uncoded 05/15/22 08:55 pain, diarrhea Review of Systems Review of Systems: Yes all other systems are reviewed and are negative [facility] Past Medical History Medical History Anemia Anxiety Asthma Blurry vision Crohn disease Depression Eosinophilia Mild recurrent major depression Physical exam Surgical History H/O colonoscopy H/O esophagogastroduodenoscopy Family History Family History Father Medical history unknown Mother Medical history unknown Social History Social History Household Members: Spouse and Children Housing: Apartment Alcohol intake: never Patient Tobacco Use Status: Never used Tobacco e-Cigarette/Vaping Use: Never Used Second Hand Smoke Exposure: Yes Substance Use Type: Marijuana Advance Directives: No Advance Directives Information Provided: No service: No Current occupational status: unemployed Cognitive needs: No Hearing needs: No Vision needs: No Physical Exam ED Vital Signs: Vital Signs - 24 hr 06/12/22 20:49 06/12/22 22:16 Temperature 97.2 F 97.9 F Pulse Rate 90 78 Respiratory Rate 20 16 Blood Pressure 143/75 H 133/79 Pulse Oximetry 96 98 Oxygen Delivery Method Room Air Room Air BMI result Body Mass Index 25.8 Appearance: Alert. Oriented X3. No acute distress. Anxious ENT: Pharynx normal. Oral Mucosa moist Neck: Normal inspection. Neck supple. CVS: Normal heart rate and rhythm. Pulses normal. Respiratory: No respiratory distress. Equal air entry bilateral, no wheezing/rales/rhonchi Abdomen: Soft and nontender. Bowel sounds are present, no mass palpable, no CVA tenderness Skin: Skin warm and dry. Normal skin color. Normal skin turgor. Extremities: No lower extremity edema. No calf tenderness eczematous lesions bilateral arm, ingrown toenail with cellulitis right great toe Neuro: Oriented X 3. Extrem Ankle/foot/toe images: 1. Edematous swelling with tenderness with surrounding cellulitis clinically ingrown toenail Medical Decision Making MDM Narrative Medical decision making narrative: Patient with ingrown right great toe nail with cellulitis refused toenail removal will try and p.o. 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 Lab Data Result diagrams: 06/12/22 21:18 06/12/22 21:18 Labs: Lab Results 06/12/22 06/12/22 Range/Units 21:18 21:18 WBC 11.0 H (4.8-10.8) X10*3/uL RBC 5.58 (4.60-5.80) X10*6/uL Hgb 15.0 (14.0-18.0) g/dl Hct 46.4 (42.0-52.0) % MCV 83.2 (80.0-98.0) fL MCH 26.9 L (27.0-33.0) pg MCHC 32.3 (31.0-36.0) g/dl RDW 14.1 (11.0-16.0) % Plt Count 339 (160-400) X10*3/uL MPV 9.2 L (9.4-12.4) fL Immature Gran % (Auto) 0.2 (0.0-0.4) % Neut % (Auto) 73.7 H (45-73) % Lymph % (Auto) 15.4 L (20-40) % [place] % (Auto) 7.5 (2-11) % Eos % (Auto) 2.7 (0-4) % Baso % (Auto) 0.5 (0-2) % Lymph # (Auto) 1.7 (1.2-4.9) X10*3/uL [place] # (Auto) 0.8 (0.1-1.2) X10*3/uL Eos # (Auto) 0.3 (0.0-0.4) X10*3/uL Baso # (Auto) 0.1 (0.0-0.2) X10*3/uL Abs Immat Gran (auto) 0.02 (0.00-0.03) X10*3/uL Absolute Neuts (auto) 8.1 (2.0-8.3) x10*3/uL Absolute Nucleated RBC 0.000 (0.0-0.012) X10*3/uL Nucleated RBC % (auto) 0.0 (0.0-0.2) /100WBC Sodium 136 (135-145) mmol/L Potassium 4.3 (3.3-5.1) mmol/L Chloride 103 (96-108) mmol/L Carbon Dioxide 26 (22-29) mmol/L Anion Gap 11 L (12-20) BUN 15 (9-16) mg/dL Creatinine 1.05 (0.5-1.4) mg/dL Estim Creat Clear Calc 88.3 Estimated GFR > 60 Random Glucose 96 (60-115) mg/dL Calcium 8.7 (8.4-10.2) mg/dL Total Bilirubin 0.2 (0.0-1.0) mg/dL AST 28 D (5-37) U/L ALT 23 (0-40) U/L Alkaline Phosphatase 42 D (39-117) U/L Total Protein 6.9 (6.5-8.0) g/dL Albumin 3.7 (3.5-5.0) g/dL Discharge Plan Discharge Clinical Impression: Ingrowing right great toenail Patient Disposition: Home, Self-Care Instructions: Ingrown Nail (ED) Additional Instructions: Antibiotic as prescribed Pain medicine as prescribed Soak in warm water Follow-up with web merchandiser Prescriptions: New oxycodone 5 mg tablet 5 mg PO Q6H PRN (Reason: pain) Qty: 20 0RF Rx Instructions: Partial Fill upon patient request. cephalexin 500 mg capsule 500 mg PO QID 10 Days Qty: 40 0RF doxycycline hyclate 100 mg tablet 100 mg PO BID Qty: 20 0RF No Action hydrocortisone 1 % cream 1 appl topical BEDTIME 30 Days Qty: 28 1RF budesonide-formoterol [Symbicort] 160-4.5 mcg/actuation HFA aerosol inhaler 2 puff inhalation BID 30 Days Qty: 10.2 11RF montelukast [Singulair] 10 mg tablet 10 mg PO BEDTIME 30 Days Qty: 30 11RF albuterol sulfate 2.5 mg /3 mL (0.083 %) solution for nebulization 2.5 mg inhalation Q6H PRN (Reason: shortness of breath or wheezing) Qty: 90 3RF loratadine 10 mg tablet 10 mg PO DAILY Qty: 30 4RF albuterol sulfate [ProAir HFA] 90 mcg/actuation HFA aerosol inhaler 2 puff inhalation Q6H PRN (Reason: shortness of breath or wheezing) Qty: 8.5 11RF cholecalciferol (vitamin D3) 50 mcg (2,000 unit) capsule 2,000 unit PO DAILY 30 Days Qty: 30 6RF Entyvio 300 mg recon soln 300 mg IV Q2W 14 Days Qty: 1 8RF Rx Instructions: Infuse 300mg IV at week 0, 2, 6, then every 8 weeks. sertraline 25 mg tablet 25 mg PO DAILY 90 Days Qty: 90 0RF (DME) AeroEclipse II Nebulizer Misc See Rx Instructions .Route Qty: 1 0RF Rx Instructions: As directed dicyclomine 20 mg tablet 20 mg PO QID PRN (Reason: abdominal pain) Qty: 30 0RF cephalexin 500 mg tablet 500 mg PO Q12H 7 Days Qty: 14 0RF hydrocortisone-acetic acid 1-2 % drops 4 drp otic (ears) QID 7 Days Qty: 10 0RF budesonide 9 mg tablet,delayed and ext.release 9 mg PO DAILY 210 Days Qty: 30 1RF Interventions: ED Discharge Assessment Last Done: 06/12/22 22:46 Discharge Date/Time: 06/12/22 22:46
[2022-06-12 22:16] VITALS: BP 133/79; PULSE 78; RESP 16; TEMP 36.6; O2SAT 98
[2022-06-12] MEDS: cephALEXin 500 MG CAPSULE PO (22:19)
[2022-06-12] MEDS: oxyCODONE HCl Immed Release 5 MG TABLET PO (22:22)
== END 2022-06-12 22:46 | disposition home or self-care (01) ==
PROVIDERS: Emergency Provider Internal Medicine; PCP Internal Medicine
DX: L03.031 Cellulitis of right toe (principal); L60.0 Ingrowing nail; L30.9 Dermatitis, unspecified
CPT/HCPCS: 36415; 80053; 85025; 99283; 99284

== ENCOUNTER 2022-07-02 22:50 | Emergency (ER) | payer OTHER, SELFPAY ==
[2022-07-02 23:04] VITALS: BP 127/67; PULSE 70; RESP 16; TEMP 36.7; O2SAT 98; BMI 25.0
== END 2022-07-03 02:14 | disposition left against medical advice (07) ==
PROVIDERS: Emergency Provider Emergency Medicine; PCP Internal Medicine
DX: M79.675 Pain in left toe(s) (principal); M79.89 Other specified soft tissue disorders
CPT/HCPCS: 99281

== ENCOUNTER 2022-07-07 14:04 | Outpatient (REF) | payer OTHER, SELFPAY | END 2022-07-07 14:05 | disposition home or self-care (01) | LOC: HO.MDS 14:04 | PROVIDERS: Visit Provider Internal Medicine Gastroenterology | DX: K50.90 Crohn's disease, unspecified, without complications (principal) | CPT/HCPCS: 96365; J3380 ==